=== PATIENT | female | born 1995 | race Caucasian/White ===

== ENCOUNTER → 2021-05-29 11:52 | Outpatient (CLI) | payer OTHER, SELFPAY ==
[2021-05-29 12:27] LABS: Hematocrit 37.7 % (37-47); Hemoglobin 12.4 g/dL (12.0-15.0); Mean Corp Hgb Conc 32.9 g/dL (32-36); Mean Corpuscular Volume 88.1 fL (81-99); Mean Platelet Vol. 10.1 fl (6.2-12.0); Platelet Count 360 K/mm3 (150-450); RBC Distribution Width CV 14.9 % (11.6-14.6); RBC Distribution Width SD 47.8 fl (35.1-43.9); Red Blood Count 4.28 M/mm3 (4.2-5.4); White Blood Count 15.1 K/mm3 (4.4-11.0)
[2021-05-29 12:45] LABS: ALB/GLOB Ratio 0.7 RATIO (0.9-2.4); AST(SGOT) 12 U/L (15-37); Alanine Aminotransfer ALT/SGPT 15 U/L (13-56); Albumin, Serum 2.7 g/dL (3.2-5.0); Alkaline Phosphatase 251 U/L (45-117); Anion Gap 7 (5-15); BUN 11 mg/dL (7-18); BUN/Creat Ratio 20.4 RATIO (10-20); Calcium,Total 8.8 mg/dL (8.5-10.1); Chloride 109 mmol/L (98-107); Creatinine, Serum 0.54 mg/dL (0.55-1.02); EST Glomerular Filtration Rate 145 mL/min (>60); Est Glom Filt Rate - Afr Amer 176 mL/min (>60); Globulin 3.9 g/dL (2.2-4.2); Glucose 106 mg/dL (74-106); LDH 156 U/L (84-246); Potassium 3.8 mmol/L (3.5-5.1); Protein, Total 6.6 g/dL (6.4-8.2); Sodium Level 138 mmol/L (136-145)
[2021-05-29 13:02] LABS: Protein, Urine (Random) 48.1 mg/dL (<11.9)
== END ==
PROVIDERS: Visit Provider Obstetrics & Gynecology
DX: O14.90 Unspecified pre-eclampsia, unspecified trimester (principal); Z3A.00 Weeks of gestation of pregnancy not specified; Z36.85 Encounter for antenatal screening for Streptococcus B
CPT/HCPCS: 36415; 80053; 82570; 83615; 84156; 84550; 85027; 87077; 87081; 87186

== ENCOUNTER 2021-05-30 13:50 | Inpatient (IN) | payer OTHER, SELFPAY ==
[2021-05-30] VITALS (64 sets, daily range): BP systolic 125–181; BP diastolic 63–101; PULSE 78–110; RESP 16–20; TEMP 36.3–37.8; O2SAT 82–100; BMI 49.6
[2021-05-30 10:55] LABS: Hematocrit 35.8 % (37-47); Hemoglobin 11.9 g/dL (12.0-15.0); Mean Corp Hgb Conc 33.2 g/dL (32-36); Mean Corpuscular Hgb 29.3 pg (27.0-32.0); Mean Corpuscular Volume 88.2 fL (81-99); Platelet Count 332 K/mm3 (150-450); RBC Distribution Width SD 48.6 fl (35.1-43.9); Red Blood Count 4.06 M/mm3 (4.2-5.4); White Blood Count 11.7 K/mm3 (4.4-11.0)
[2021-05-30] MEDS: Acetaminophen 500 MG Tablet 1000 MG PO (11:04)
[2021-05-30 11:13] LABS: Protein, Urine (Random) 10.4 mg/dL (<11.9); Protein:Creat Ratio 248 mg/g CRE (0-200)
[2021-05-30 11:16] LABS: AST(SGOT) 13 U/L (15-37); Alanine Aminotransfer ALT/SGPT 13 U/L (13-56); Creatinine, Serum 0.48 mg/dL (0.55-1.02); EST Glomerular Filtration Rate 164 mL/min (>60); Est Glom Filt Rate - Afr Amer 198 mL/min (>60); Estimated Creatinine Clearance 134.02 ml/min
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
[2021-05-30] MEDS: Lactated Ringers 1,000 ML 50 ML IV (14:10)
[2021-05-30] MEDS: Magnesium Sulfate 4gm/100mL 4 GM/100 ML IV.SOLN. IV (14:13)
[2021-05-30] MEDS: Magnesium Sulfate 4gm/100mL 2 GM/50 ML IV.SOLN. IV (14:33)
[2021-05-30] MEDS: miSOPROStol 25 MCG TABLET VAGINAL (14:40)
[2021-05-30 14:46] LABS: Bedside Glucose 108 mg/dL (70-110)
[2021-05-30] MEDS: Magnesium Sulfate 20 GM/500 ML BAG IV (14:50)
[2021-05-30] MEDS: metFORMIN (XR) 500 MG Tablet 1000 MG PO (14:50)
[2021-05-30 18:50] LABS: Bedside Glucose 103 mg/dL (70-110)
[2021-05-30] MEDS: Acetaminophen 500 MG Tablet PO (19:19)
[2021-05-30] MEDS: CLARIFY ORDER NOTE (19:20)
[2021-05-30] MEDS: miSOPROStol 50 MCG TABLET VAGINAL (20:30)
[2021-05-30] MEDS: Venlafaxine XR 150 MG Capsule PO (21:55)
[2021-05-30] MEDS: QUEtiapine 100 MG Tablet 200 MG PO (21:55)
[2021-05-30] MEDS: busPIRone 15 MG TABLET PO (21:57)
[2021-05-30 23:01] LABS: Bedside Glucose 112 mg/dL (70-110)
[2021-05-31] VITALS (97 sets, daily range): BP systolic 108–201; BP diastolic 55–102; PULSE 70–168; RESP 16–20; TEMP 36.5–37.9; O2SAT 80–100
[2021-05-31] MEDS: Magnesium Sulfate 20 GM/500 ML BAG IV ×3 (00:31→21:01)
[2021-05-31] MEDS: Acetaminophen/Butalbital/Caffe 1 Tablet 2 TABLET PO (01:06)
--- NOTE | 2021-05-31 02:27 | PCM.PN.OB ---
Subjective Subjective Reports severe headache, frontal. Not alleviated by Fiorecet. Denies nausea or vomiting. Denies contractions. Objective Data Objective Data Vital Signs: Vital Signs Temp Pulse Resp BP Pulse Ox 98.7 F 90 16 167/91 H 97 05/31/21 01:00 05/31/21 02:26 05/31/21 01:00 05/31/21 02:26 05/31/21 01:04 Oxygen Delivery Method Room Air Weight: 119.295 kg Body Mass Index (BMI) 49.6 Intake & Output: Intake and Output for Last 24 Hours 05/29/21 05/30/21 05/31/21 23:59 23:59 23:59 Intake Total 1450 / 1450 484.17 / 484.17 Output Total 1300 / 1300 Balance 150 / 150 484.17 / 484.17 Lab / Micro Data Result Diagrams: 05/30/21 10:35 05/31/21 07:25 Labs: Laboratory Results - last 24 hr 05/30/21 05/30/21 05/30/21 10:35 10:35 10:35 WBC 11.7 H RBC 4.06 L Hgb 11.9 L Hct 35.8 L MCV 88.2 MCH 29.3 MCHC 33.2 RDW Std Deviation 48.6 H RDW Coeff of Laila 15.0 H Plt Count 332 MPV 10.0 Creatinine 0.48 L Estim Creat Clear Calc 134.02 Est GFR (MDRD) Af Amer 198 Est GFR (MDRD) Non-Af 164 Uric Acid 5.0 AST 13 L ALT 13 U Random Total Protein 10.4 Urine Creatinine 41.90 Protein/Creatinin Ratio 248 H POC Glucose Blood Type Antibody Screen 05/30/21 05/30/21 05/30/21 14:05 14:40 18:42 WBC RBC Hgb Hct MCV MCH MCHC RDW Std Deviation RDW Coeff of Laila Plt Count MPV Creatinine Estim Creat Clear Calc Est GFR (MDRD) Af Amer Est GFR (MDRD) Non-Af Uric Acid AST ALT U Random Total Protein Urine Creatinine Protein/Creatinin Ratio POC Glucose 108 103 Blood Type O POSITIVE Antibody Screen NEGATIVE 05/30/21 22:54 WBC RBC Hgb Hct MCV MCH MCHC RDW Std Deviation RDW Coeff of Laila Plt Count MPV Creatinine Estim Creat Clear Calc Est GFR (MDRD) Af Amer Est GFR (MDRD) Non-Af Uric Acid AST ALT U Random Total Protein Urine Creatinine Protein/Creatinin Ratio POC Glucose 112 H Blood Type Antibody Screen Physical Exam Const alert, oriented x3 and no apparent distress Resp normal respiratory effort and normal air movement Cardio regular rate and regular rhythm GI Inspection: gravid Narrative: 2/50/-3, midposition and moderate NST FHR Rate Baby A Baseline: 120 Variability:: Moderate Accelerations:: 15 x 15 Decelerations:: None NST Reactive:: Yes FHR Category:: Category I Uterine Activity:: 0/10 Assessment & Plan (1) Gestational diabetes mellitus: COMMENT: well controlled PLAN: FS glucose wnl Continue to monitor per protocol (2) Severe pre-eclampsia: PLAN: Headache recurs despite APAP, Fiorecet. Reglan IV x 1 Recent BP severe range, will repeat and treat per protocol if remains elevated. SVE 2/50/-3, moderate and midposition - genao bulb placed, start pitocin
[2021-05-31] MEDS: 0.9% Normal Saline Single 100 ML IV.SOLN. INTRA-UTER (02:57)
[2021-05-31] MEDS: Lactated Ringers 500 ML 999 ML IV (03:06)
[2021-05-31 03:20] LABS: Bedside Glucose 92 mg/dL (70-110)
[2021-05-31] MEDS: Ondansetron 4 MG/2 ML Vial IV ×2 (04:06→13:22)
[2021-05-31] MEDS: fentaNYL-bupivacaine (epidural) 100 ML BAG EPIDURAL ×5 (04:20→18:19)
[2021-05-31] MEDS: Lactated Ringers 1,000 ML 200 ML IV ×4 (05:24→20:21)
[2021-05-31] MEDS: Oxytocin 30 units/NS 500 ml 30 UNITS/500 ML IV.SOLN IV (05:42)
--- NOTE | 2021-05-31 07:13 | PCM.PN.OB ---
Subjective Subjective Reports headache is coming back this morning. Feels better with epidural. Objective Data Objective Data Vital Signs: Vital Signs Temp Pulse Resp BP Pulse Ox 99.4 F H 88 16 127/73 H 98 05/31/21 06:59 05/31/21 07:05 05/31/21 06:00 05/31/21 06:59 05/31/21 07:05 Oxygen Delivery Method Room Air Weight: 119.295 kg Body Mass Index (BMI) 49.6 Intake & Output: Intake and Output for Last 24 Hours 05/29/21 05/30/21 05/31/21 23:59 23:59 23:59 Intake Total 1450 / 1450 2071.78 / 2071.78 Output Total 1300 / 1300 200 / 200 Balance 150 / 150 1871.78 / 1871.78 Lab / Micro Data Result Diagrams: 05/30/21 10:35 05/30/21 10:35 Labs: Laboratory Results - last 24 hr 05/30/21 05/30/21 05/30/21 10:35 10:35 10:35 WBC 11.7 H RBC 4.06 L Hgb 11.9 L Hct 35.8 L MCV 88.2 MCH 29.3 MCHC 33.2 RDW Std Deviation 48.6 H RDW Coeff of Laila 15.0 H Plt Count 332 MPV 10.0 Creatinine 0.48 L Estim Creat Clear Calc 134.02 Est GFR (MDRD) Af Amer 198 Est GFR (MDRD) Non-Af 164 Uric Acid 5.0 AST 13 L ALT 13 U Random Total Protein 10.4 Urine Creatinine 41.90 Protein/Creatinin Ratio 248 H POC Glucose Blood Type Antibody Screen 05/30/21 05/30/21 05/30/21 14:05 14:40 18:42 WBC RBC Hgb Hct MCV MCH MCHC RDW Std Deviation RDW Coeff of Laila Plt Count MPV Creatinine Estim Creat Clear Calc Est GFR (MDRD) Af Amer Est GFR (MDRD) Non-Af Uric Acid AST ALT U Random Total Protein Urine Creatinine Protein/Creatinin Ratio POC Glucose 108 103 Blood Type O POSITIVE Antibody Screen NEGATIVE 05/30/21 05/31/21 22:54 03:14 WBC RBC Hgb Hct MCV MCH MCHC RDW Std Deviation RDW Coeff of Laila Plt Count MPV Creatinine Estim Creat Clear Calc Est GFR (MDRD) Af Amer Est GFR (MDRD) Non-Af Uric Acid AST ALT U Random Total Protein Urine Creatinine Protein/Creatinin Ratio POC Glucose 112 H 92 Blood Type Antibody Screen Physical Exam Const alert, oriented x3 and no apparent distress GI Inspection: gravid Narrative: /-2, soft, anterior NST FHR Rate Baby A Baseline: 115 Variability:: Moderate Accelerations:: 15 x 15 Decelerations:: None NST Reactive:: Yes FHR Category:: Category I Uterine Activity:: 3-03/07 Assessment & Plan (1) Gestational diabetes mellitus: COMMENT: well controlled (2) Severe pre-eclampsia: PLAN: APAP for headache Amniotomy performed with clear fluid status reassuring
[2021-05-31 07:15] LABS: Bedside Glucose 86 mg/dL (70-110)
[2021-05-31] MEDS: Acetaminophen 500 MG Tablet PO (07:22)
[2021-05-31 07:39] LABS: Hematocrit 37.6 % (37-47); Hemoglobin 12.4 g/dL (12.0-15.0); Mean Corpuscular Hgb 29.3 pg (27.0-32.0); Mean Corpuscular Volume 88.9 fL (81-99); Mean Platelet Vol. 10.1 fl (6.2-12.0); Platelet Count 326 K/mm3 (150-450); RBC Distribution Width CV 15.1 % (11.6-14.6); Red Blood Count 4.23 M/mm3 (4.2-5.4); White Blood Count 16.6 K/mm3 (4.4-11.0)
[2021-05-31 07:53] LABS: ALB/GLOB Ratio 0.7 RATIO (0.9-2.4); AST(SGOT) 13 U/L (15-37); Alanine Aminotransfer ALT/SGPT 16 U/L (13-56); Albumin, Serum 2.8 g/dL (3.2-5.0); Alkaline Phosphatase 264 U/L (45-117); Anion Gap 10 (5-15); BUN 6 mg/dL (7-18); Chloride 101 mmol/L (98-107); Creatinine, Serum 0.54 mg/dL (0.55-1.02); EST Glomerular Filtration Rate 144 mL/min (>60); Est Glom Filt Rate - Afr Amer 174 mL/min (>60); Estimated Creatinine Clearance 119.13 ml/min; Globulin 3.8 g/dL (2.2-4.2); Glucose 95 mg/dL (74-106); Potassium 3.6 mmol/L (3.5-5.1); Protein, Total 6.6 g/dL (6.4-8.2); Sodium Level 135 mmol/L (136-145)
[2021-05-31] MEDS: Betamethasone/Betamethasone 30 MG/5 ML Vial 12 MG IM (08:06)
[2021-05-31] MEDS: metFORMIN (XR) 500 MG Tablet 1000 MG PO (08:10)
--- NOTE | 2021-05-31 09:26 | PCM.PN.OB ---
Subjective Subjective Headache improved after Tylenol. She feels some pressure with contractions, but it is manageable. Reports intense pressure with exams. Objective Data Objective Data Vital Signs: Vital Signs Temp Pulse Resp BP Pulse Ox 99.6 F H 87 16 152/77 H 97 05/31/21 09:01 05/31/21 09:06 05/31/21 09:01 05/31/21 09:06 05/31/21 09:02 Oxygen Delivery Method Room Air Weight: 119.295 kg Body Mass Index (BMI) 49.6 Intake & Output: Intake and Output for Last 24 Hours 05/29/21 05/30/21 05/31/21 23:59 23:59 23:59 Intake Total 1450 / 1450 2077.45 / 2077.45 Output Total 1300 / 1300 700 / 700 Balance 150 / 150 1377.45 / 1377.45 Lab / Micro Data Result Diagrams: 05/31/21 07:25 05/31/21 07:25 Labs: Laboratory Results - last 24 hr 05/30/21 05/30/21 05/30/21 10:35 10:35 10:35 WBC 11.7 H RBC 4.06 L Hgb 11.9 L Hct 35.8 L MCV 88.2 MCH 29.3 MCHC 33.2 RDW Std Deviation 48.6 H RDW Coeff of Laila 15.0 H Plt Count 332 MPV 10.0 Sodium Potassium Chloride Carbon Dioxide Anion Gap BUN Creatinine 0.48 L Estim Creat Clear Calc 134.02 Est GFR (MDRD) Af Amer 198 Est GFR (MDRD) Non-Af 164 BUN/Creatinine Ratio Glucose Uric Acid 5.0 Calcium Total Bilirubin AST 13 L ALT 13 Alkaline Phosphatase Total Protein Albumin Globulin Albumin/Globulin Ratio U Random Total Protein 10.4 Urine Creatinine 41.90 Protein/Creatinin Ratio 248 H POC Glucose Blood Type Antibody Screen 05/30/21 05/30/21 05/30/21 14:05 14:40 18:42 WBC RBC Hgb Hct MCV MCH MCHC RDW Std Deviation RDW Coeff of Laila Plt Count MPV Sodium Potassium Chloride Carbon Dioxide Anion Gap BUN Creatinine Estim Creat Clear Calc Est GFR (MDRD) Af Amer Est GFR (MDRD) Non-Af BUN/Creatinine Ratio Glucose Uric Acid Calcium Total Bilirubin AST ALT Alkaline Phosphatase Total Protein Albumin Globulin Albumin/Globulin Ratio U Random Total Protein Urine Creatinine Protein/Creatinin Ratio POC Glucose 108 103 Blood Type O POSITIVE Antibody Screen NEGATIVE 05/30/21 05/31/21 05/31/21 22:54 03:14 07:05 WBC RBC Hgb Hct MCV MCH MCHC RDW Std Deviation RDW Coeff of Laila Plt Count MPV Sodium Potassium Chloride Carbon Dioxide Anion Gap BUN Creatinine Estim Creat Clear Calc Est GFR (MDRD) Af Amer Est GFR (MDRD) Non-Af BUN/Creatinine Ratio Glucose Uric Acid Calcium Total Bilirubin AST ALT Alkaline Phosphatase Total Protein Albumin Globulin Albumin/Globulin Ratio U Random Total Protein Urine Creatinine Protein/Creatinin Ratio POC Glucose 112 H 92 86 Blood Type Antibody Screen 05/31/21 05/31/21 07:25 07:25 WBC 16.6 H RBC 4.23 Hgb 12.4 Hct 37.6 MCV 88.9 MCH 29.3 MCHC 33.0 RDW Std Deviation 49.0 H RDW Coeff of Laila 15.1 H Plt Count 326 MPV 10.1 Sodium 135 L Potassium 3.6 Chloride 101 Carbon Dioxide 24.0 Anion Gap 10 BUN 6 L Creatinine 0.54 L Estim Creat Clear Calc 119.13 Est GFR (MDRD) Af Amer 174 Est GFR (MDRD) Non-Af 144 BUN/Creatinine Ratio 11.0 Glucose 95 Uric Acid Calcium 8.0 L Total Bilirubin 0.30 AST 13 L ALT 16 Alkaline Phosphatase 264 H Total Protein 6.6 Albumin 2.8 L Globulin 3.8 Albumin/Globulin Ratio 0.7 L U Random Total Protein Urine Creatinine Protein/Creatinin Ratio POC Glucose Blood Type Antibody Screen Physical Exam Const alert, oriented x3 and no apparent distress Resp normal respiratory effort, normal air movement and clear to auscultation bilaterally Cardio regular rate, regular rhythm, S1 normal heart sound and S2 normal heart sound Narrative: 4.5/70/-3 Neuro oriented x3 Neuro Narrative: no clonus, +2 b/l LE DTRs, brisk, no clonus NST FHR Rate Baby A Baseline: 115 Variability:: Moderate Accelerations:: 15 x 15 Decelerations:: None NST Reactive:: Yes FHR Category:: Category I Uterine Activity:: 02/04 Assessment & Plan (1) Gestational diabetes mellitus: COMMENT: well controlled (2) Severe pre-eclampsia: PLAN: continue magnesium iv as tolerated, no evidence of toxicity AM labs reviewed and remains wnl IUPC and ISE placed continue pitocin
[2021-05-31] MEDS: busPIRone 15 MG TABLET PO (10:16)
[2021-05-31 11:20] LABS: Bedside Glucose 105 mg/dL (70-110)
[2021-05-31 15:26] LABS: Bedside Glucose 119 mg/dL (70-110)
[2021-05-31 19:31] LABS: Bedside Glucose 100 mg/dL (70-110)
--- NOTE | 2021-05-31 20:38 | PCM.PN.BLA ---
Progress Note Author: Yomaira Brooks MD Subjective Reports severe pain with contractions into her back and buttocks. Objective Data Vital Signs: Vital Signs Temp Pulse Resp BP Pulse Ox 97.8 F 89 18 135/72 H 98 05/31/21 19:58 05/31/21 20:15 05/31/21 19:58 05/31/21 20:15 05/31/21 19:58 Oxygen Delivery Method Room Air Weight: 119.295 kg Body Mass Index (BMI) 49.6 Intake & Output:Intake and Output for Last 24 Hours 05/29/21 05/30/21 05/31/21 23:59 23:59 23:59 Intake Total 1450 / 1450 5899.42 / 5899.42 Output Total 1300 / 1300 2700 / 2700 Balance 150 / 150 3199.42 / 3199.42 Lab / Micro Data Result Diagrams: 05/31/21 07:25 document embedded image 05/31/21 07:25 document embedded image Labs:Laboratory Results - last 24 hr 05/30/21 05/31/21 05/31/21 22:54 03:14 07:05 WBC RBC Hgb Hct MCV MCH MCHC RDW Std Deviation RDW Coeff of Laila Plt Count MPV Sodium Potassium Chloride Carbon Dioxide Anion Gap BUN Creatinine Estim Creat Clear Calc Est GFR (MDRD) Af Amer Est GFR (MDRD) Non-Af BUN/Creatinine Ratio Glucose Calcium Total Bilirubin AST ALT Alkaline Phosphatase Total Protein Albumin Globulin Albumin/Globulin Ratio POC Glucose 112 H 92 86 05/31/21 05/31/21 05/31/21 07:25 07:25 11:08 WBC 16.6 H RBC 4.23 Hgb 12.4 Hct 37.6 MCV 88.9 MCH 29.3 MCHC 33.0 RDW Std Deviation 49.0 H RDW Coeff of Laila 15.1 H Plt Count 326 MPV 10.1 Sodium 135 L Potassium 3.6 Chloride 101 Carbon Dioxide 24.0 Anion Gap 10 BUN 6 L Creatinine 0.54 L Estim Creat Clear Calc 119.13 Est GFR (MDRD) Af Amer 174 Est GFR (MDRD) Non-Af 144 BUN/Creatinine Ratio 11.0 Glucose 95 Calcium 8.0 L Total Bilirubin 0.30 AST 13 L ALT 16 Alkaline Phosphatase 264 H Total Protein 6.6 Albumin 2.8 L Globulin 3.8 Albumin/Globulin Ratio 0.7 L POC Glucose 105 05/31/21 05/31/21 15:13 19:13 WBC RBC Hgb Hct MCV MCH MCHC RDW Std Deviation RDW Coeff of Laila Plt Count MPV Sodium Potassium Chloride Carbon Dioxide Anion Gap BUN Creatinine Estim Creat Clear Calc Est GFR (MDRD) Af Amer Est GFR (MDRD) Non-Af BUN/Creatinine Ratio Glucose Calcium Total Bilirubin AST ALT Alkaline Phosphatase Total Protein Albumin Globulin Albumin/Globulin Ratio POC Glucose 119 H 100 Physical Exam Narrative breathing deeply through contractions Const alert, oriented x3 and no apparent distress GI Inspection: gravid Narrative: /, caput present and no longer able to well assess suture line, Bedside US performed confirming cephalic and OP NST FHR Rate Baby A Baseline: 125 Accelerations:: 15 x 15 Decelerations:: None NST Reactive:: Yes FHR Category:: Category I Uterine Activity:: 3/10 A/P: 26yo G1 @ 36 1/7 weeks gestation -36 weeks gestation: Continue pitocin as tolerated, anesthesiology contacted for redosing of epidural. -Gestational Diabetes: Last FS 100mg/dL, continue q4h until active labor -Preeclampsia with severe features: Continue magnesium as tolerated by mother and fetus, no si/sx of worsening at this time. -
--- NOTE | 2021-05-31 22:21 | PCM.PN.BLA ---
Progress Note LABOR PROGRESS NOTE c/o excruciating pain and back spasm with pressure. She requests a section as she can't last much longer. AVSS, 133/89, P 95, R 18, T 99.9, O2 sat 98 GEN - breathing deeply and writhing with contractions FHR 130, moderate variability, + accelerations, no decelerations TOCO 4/10 min SVE 6/80/0 A/P: 26yo G1 @ 36 2/7 wga with 1. Preeclampsia with severe features 2. Gestational diabetes mellitus, Cat I FHR Reviewed with patient section indications, does not meet obstetric criteria at this time. FHR reassuring and no si/sx worsening preeclampsia. Repeat SVE performed and given patient remote from delivery requests section. Discussed with patient r/b versus vaginal delivery. Reviewed risk for pain, bleeding including but not limited to hemorrhage, infection, VTE, injury to surrounding organs, risk for placenta accreta with associated risk for hysterectomy and hemorrhage in future , scarring, increased risk for respiratory difficulties. High risk for GA given prior back surgeries and suboptimal epidural - reviewed increased risk for hemorrhage related to GA, as well as respiratory depression. Also offered patient nitrous oxide with continued labor. Following discussion, pt elects to proceed with section. Pitocin discontinued.
[2021-05-31 22:31] LABS: Bedside Glucose 102 mg/dL (70-110)
[2021-05-31] MEDS: Sodium Citrate/Citric Acid 30 ML UDC PO (22:31)
[2021-06-01] VITALS (56 sets, daily range): BP systolic 86–171; BP diastolic 43–97; PULSE 76–114; RESP 16–32; TEMP 36.2–37.3; O2SAT 94–100
[2021-06-01] MEDS: Oxytocin 30 units/NS 500 ml 30 UNITS/500 ML IV.SOLN 167 UNITS IV (00:20)
--- NOTE | 2021-06-01 00:35 | EX.PCM.OBRPT ---
Maternal Data Information MESFIN Calculator Estimated Delivery Date Method Current WG Current Estimate 06/26/21 Ultrasound #1 36w 3d Other Estimates 06/26/21 Manual 36w 3d Details Operative Information Date of Procedure: 06/01/21 Pre-Operative Diagnosis: 1. 36-2/7 weeks gestation 2. Preeclampsia with severe features 3. Gestational [id number] 4. Maternal section request Post-Operative Diagnosis: 1. 36-2/7 weeks gestation 2. Preeclampsia with severe features 3. Gestational [id number] 4. Maternal section request Indications Narrative: 26-year-old 1 para 0 who presented at 36-1/7 weeks gestational age with preeclampsia with severe features. She was induced and started on IV magnesium had progressed to 6 cm dilation with category 1 heart rate tracing. She had a prior history of back surgery including laminectomy and her epidural analgesia was an adequate despite multiple redosing. The patient requested section due to significant pain in labor. I reviewed with the patient related risks, benefits, indications and alternatives to manage her pain intrapartum. Patient declined further trial of labor and opted to proceed with section. Classification: JASON Procedure Type: low transverse training and development specialist #1: Erinn Fink Type of Anesthesia: Spinal Anesthesiologist: Daniel Mensah Antibiotic Given: Ancef 3 grams IV x1 and Zithromax 500 mg/5 mL X1 Drain: Talley to straight drain Estimated Blood Loss: 900 ml Findings Description of Procedure: The patient was taken to the operating room and spinal analgesia was administered. She is placed in a dorsal supine position with left lateral tilt. The perineum and abdomen were prepped and draped in sterile fashion. And the spinal was found to be adequate. A Pfannenstiel incision was made using a scalpel and brought down to incise the subcutaneous tissue and rectus fascia at the midline. Subcutaneous tissue was bluntly dissected off the fascia laterally. The fascial incision was dissected laterally and cephalad using curved Watson scissors. The superior leaflet of the rectus fascia was grasped using Luis Alfredo clamps and bluntly dissected and sharply dissected from the underlying rectus muscle. In a similar fashion the inferior rectus fascia was dissected from the underlying muscle. The rectus muscles were bluntly at the midline. The peritoneum was identified and entered [sharply]. An Juan O retractor was placed intra-abdominally. The bladder blade was placed into the abdomen and the vesicouterine peritoneal fold identified. The fold was incised and a bladder flap created. Bladder blade was then repositioned to the abdomen. A low transverse hysterotomy was made using the [Metzenbaum scissors] to level of the membranes. The hysterotomy was extended bluntly cephalad and caudad. The membranes were then ruptured revealing clear fluid. The head was elevated and brought to the level of the hysterotomy and the delivered revealing a [male] . The cord was doubly clamped and cut after 30 seconds. The infant was passed to awaiting [nursery personnel]. The placenta was [expressed] from the uterus and appeared intact on inspection. The uterus was cleared of debris. The hysterotomy was then repaired using 0 Vicryl running lock suture. A second imbricating layer was also placed for additional hemostasis. [id number]-vw-[id number] suture was placed at the midline for hemostasis. The bladder blade and Juan retractor were removed. The anterior cul-de-sac was cleared of debris. The peritoneum and rectus muscles were reapproximated using 2-0 Vicryl running suture. The rectus fascia was closed using 0 strata fix running suture. The subcutaneous tissue was sponge irrigated and small capillary bleeding controlled using the Bovie device. The subcutaneous tissue was reapproximated using 2-0 Vicryl. The skin was closed using 4-0 Monocryl subcuticularly by the GROUN[employer] RESTORATION SPECIALIST under my supervision. A Mepilex silver occlusive dressing was placed over the incision. The fundus was firm. The patient was then transferred to the recovery room without complication. Sponge, instrument, and needle counts were correct ?2. Cord gases pending. Infant weight 6 pounds 6 ounces. Presentation: Positive for Vertex Amniotic Membrane Rupture Type: Spontaneous Amniotic Fluid Description: Clear Placental Delivery Description: Expressed Placenta Disposition: Sent to Pathology Specimen(s) Sent to Pathology: Placenta Cord Vessel Description: 3 Vessels Cord Entanglement: Around neck x 2, loose Nuchal Cord Compression: Without compression Cord Gases: ABG and VBG A Gender: Male (1 minute): 7 (5 minute): 9 Delayed Cord Clamping: Yes Complications Risks of Surgery Discussed w/Patient: Bleeding, Anesthesia Risks, Infection, Need for Future C-Sections and Injury to surrounding structure(s) including bowel and bladder
[2021-06-01] MEDS: Ketorolac 30 MG/ML Syringe IV ×4 (00:40→18:11)
[2021-06-01 01:00] LABS: Bedside Glucose 118 mg/dL (70-110)
[2021-06-01] MEDS: Acetaminophen 500 MG Tablet 1000 MG PO ×4 (01:53→20:15)
[2021-06-01] MEDS: QUEtiapine 100 MG Tablet 200 MG PO ×2 (02:06→22:16)
[2021-06-01] MEDS: Venlafaxine XR 150 MG Capsule PO ×2 (02:07→22:07)
[2021-06-01] MEDS: busPIRone 15 MG TABLET PO ×3 (02:09→22:16)
[2021-06-01] MEDS: Lactated Ringers 1,000 ML 50 ML IV ×2 (03:35→14:11)
[2021-06-01] MEDS: HYDROmorphone 1 MG/ML Syringe IV ×3 (04:04→23:08)
[2021-06-01] MEDS: 0.9% Saline Lock 10 ML Syringe IV (04:06)
[2021-06-01] MEDS: Heparin Injection (Vial) 5,000 UNIT/ML VIAL 5000 UNIT SC ×3 (06:17→22:17)
[2021-06-01 06:25] LABS: Bedside Glucose 122 mg/dL (70-110)
[2021-06-01] MEDS: Magnesium Sulfate 20 GM/500 ML BAG IV ×2 (06:34→16:46)
[2021-06-01] MEDS: Senna/Docusate Sodium 1 Tablet PO (08:12)
[2021-06-01] MEDS: Cefazolin 1 GM/50 ML BAG IV ×2 (08:12→15:58)
--- NOTE | 2021-06-01 08:20 | PCM.PN.BLA ---
Progress Note Subjective: Patient reports she is sore including back pain with some periods additional pain. She stood up at the bedside and denies lightheadedness. She did feel she felt weak. Denies headache, vision changes, shortness of breath, chest pain, nausea, vomiting. She is breast-feeding and hand expressing. Objective: Blood pressure 86/47 (80s-140s/50s-90s postop), pulse 92, R 18, O2 sat 99% on RA General alert and oriented x3 with no acute distress HEENT atraumatic, normocephalic Cardiovascular regular rate and rhythm no murmurs rubs or gallops Pulmonary lungs clear to auscultation bilaterally Abdomen soft nontender nondistended Fundus: Firm, nontender, incisional dressing clean dry and intact. : Lochia scant. Extremities: No calf tenderness, trace lower extremity edema Assessment: 26-year-old G1 now P1 status post primary low transverse section with preeclampsia and severe features on magnesium. Plan section delivered: Routine postop care, Rh+, rubella immune, HIV negative, hep B surface antigen negative; breast-feeding Low blood pressure: fluid bolus, CBC this a.m. Severe preeclampsia: Continue magnesium infusion, no signs and symptoms of worsening Gestational diabetes: Blood sugar this morning 122 mg/dL, will repeat fasting blood sugar tomorrow morning History of depression and anxiety: Home medications continued
[2021-06-01 09:33] LABS: Absolute Lymphocyte Count 1.79 X10^3/uL (0.83-4.51); Absolute Neutrophil Count 18.2 X10^3/uL (2.0-7.7); Basophil# 0.04 X10^3/uL; Basophil% 0.2 % (0-1); Hematocrit 27.1 % (37-47); Hemoglobin 8.9 g/dL (12.0-15.0); Lymphocyte # 1.79 X10^3/ul (0.83-4.51); Lymphocyte % 8.4 % (19-41); Mean Corp Hgb Conc 32.8 g/dL (32-36); Mean Corpuscular Hgb 29.4 pg (27.0-32.0); Mean Corpuscular Volume 89.4 fL (81-99); Mean Platelet Vol. 9.9 fl (6.2-12.0); Monocyte# 1.06 X10^3/uL; NRBC Flagged by Analyzer 0 % (0-5); Neutrophil # 18.23 X10^3/uL (2.7-7.7); Neutrophil % 85.4 % (47-70); Platelet Count 286 K/mm3 (150-450); RBC Distribution Width CV 15.6 % (11.6-14.6); RBC Distribution Width SD 50.3 fl (35.1-43.9); Red Blood Count 3.03 M/mm3 (4.2-5.4); White Blood Count 21.3 K/mm3 (4.4-11.0)
[2021-06-01] MEDS: Lactated Ringers 500 ML 999 ML IV (09:34)
[2021-06-01] MEDS: NIFEdipine 30 MG Tablet PO (22:07)
[2021-06-02] VITALS (11 sets, daily range): BP systolic 123–168; BP diastolic 64–102; PULSE 80–115; RESP 18; TEMP 36.3–37.3; O2SAT 95–98
[2021-06-02] MEDS: Ibuprofen 600 MG Tablet PO ×4 (00:29→19:16)
[2021-06-02] MEDS: Acetaminophen 500 MG Tablet 1000 MG PO ×4 (02:11→20:01)
[2021-06-02] MEDS: oxyCODONE 5 MG Tablet PO ×2 (02:18→17:31)
[2021-06-02 05:51] LABS: Hematocrit 25.6 % (37-47); Hemoglobin 8.3 g/dL (12.0-15.0); Mean Corp Hgb Conc 32.4 g/dL (32-36); Mean Corpuscular Hgb 29.5 pg (27.0-32.0); Mean Corpuscular Volume 91.1 fL (81-99); Platelet Count 275 K/mm3 (150-450); RBC Distribution Width CV 15.7 % (11.6-14.6); RBC Distribution Width SD 51.8 fl (35.1-43.9); Red Blood Count 2.81 M/mm3 (4.2-5.4); White Blood Count 15.7 K/mm3 (4.4-11.0)
[2021-06-02 05:51] LABS: Bedside Glucose 103 mg/dL (70-110)
[2021-06-02] MEDS: Heparin Injection (Vial) 5,000 UNIT/ML VIAL 5000 UNIT SC ×3 (05:54→23:40)
--- NOTE | 2021-06-02 08:04 | PN.OBGYN_ITS ---
Subjective Subjective Patient with improved symptoms but with headache this morning upon evaluation. Patient otherwise asymptomatic. Denies visual changes, chest pain, shortness of breath, nausea vomiting, right upper quadrant pain. Objective Data Objective Data Vital Signs: Vital Signs Temp Pulse Resp BP Pulse Ox 98.3 F 80 18 123/64 H 98 06/02/21 02:12 06/02/21 07:46 06/02/21 02:12 06/02/21 07:46 06/02/21 02:14 Oxygen Delivery Method Room Air Weight: 263 lb Body Mass Index (BMI) 49.6 Intake & Output: Intake and Output for Last 24 Hours 05/31/21 06/01/21 06/02/21 23:59 23:59 23:59 Intake Total 7859.95 / 7859.95 4691.67 / 4691.67 Output Total 3000 / 3000 2930 / 2930 550 / 550 Balance 4859.95 / 4859.95 1761.67 / 1761.67 -550 / -550 Lab / Micro Data Result Diagrams: 06/02/21 05:40 05/31/21 07:25 Labs: Laboratory Results - last 24 hr 06/01/21 06/02/21 06/02/21 09:25 05:38 05:40 WBC 21.3 H 15.7 H RBC 3.03 L 2.81 L Hgb 8.9 L 8.3 L Hct 27.1 L 25.6 L MCV 89.4 91.1 MCH 29.4 29.5 MCHC 32.8 32.4 RDW Std Deviation 50.3 H 51.8 H RDW Coeff of Laila 15.6 H 15.7 H Plt Count 286 275 MPV 9.9 10.0 Immature Gran % (Auto) 1.000 H Neut % (Auto) 85.4 H Lymph % (Auto) 8.4 L [place] % (Auto) 5.0 Eos % (Auto) 0.0 Baso % (Auto) 0.2 Absolute Neuts (auto) 18.2 H Absolute Lymphs (auto) 1.79 Nucleated RBC % 0 POC Glucose 103 Physical Exam Const alert, oriented x3 and no apparent distress HEENT normocephalic Head and Scalp: atraumatic Neck full ROM Resp normal respiratory effort, no retractions and no use of accessory muscles GI normal to inspection, nondistended, normoactive bowel sounds GI Narrative: Bandage clean dry and intact Extremity normal to inspection, full ROM and no clubbing, cyanosis or edema Skin no rashes or lesions noted Psych mental status grossly normal, affect normal, speech normal and activity/motor behavior normal Assessment & Plan (1) : PLAN: Postoperative day 1 status post elective primary section. Breast-feeding. Pain well controlled. Severe preeclampsia based on visual changes status post 24 hours magnesium. Started on Procardia 30 mg daily blood pressures within normal limits. Headache this morning we will give Tylenol and reevaluate.
[2021-06-02] MEDS: Senna/Docusate Sodium 1 Tablet PO (10:41)
[2021-06-02] MEDS: NIFEdipine 30 MG Tablet PO (10:41)
[2021-06-02] MEDS: busPIRone 15 MG TABLET PO ×2 (12:00→23:40)
[2021-06-02] MEDS: QUEtiapine 100 MG Tablet 200 MG PO (23:39)
[2021-06-02] MEDS: Venlafaxine XR 150 MG Capsule PO (23:40)
[2021-06-03] VITALS (7 sets, daily range): BP systolic 129–166; BP diastolic 65–101; PULSE 94–106; RESP 16–20; TEMP 36.7–36.9; O2SAT 96
[2021-06-03] MEDS: Ibuprofen 600 MG Tablet PO ×4 (00:43→18:25)
[2021-06-03] MEDS: Acetaminophen 500 MG Tablet 1000 MG PO ×3 (02:13→15:19)
[2021-06-03] MEDS: oxyCODONE 5 MG Tablet PO ×2 (04:58→18:25)
[2021-06-03] MEDS: Heparin Injection (Vial) 5,000 UNIT/ML VIAL 5000 UNIT SC ×2 (06:26→15:20)
[2021-06-03] MEDS: 0.9% Saline Lock 10 ML Syringe IV (06:29)
--- NOTE | 2021-06-03 06:49 | PCM.PN.BLA ---
Progress Note Visited patient room at approximately 0600h and patient not present. Will revisit later today.
--- NOTE | 2021-06-03 08:45 | NURSING ---
BP of 166/101 taken with cuff too small. BP to be retaken with larger cuff
--- NOTE | 2021-06-03 09:04 | PCM.PN.OB ---
Subjective Subjective Pain controlled, out of bed, ambulating without difficulty. Voiding without difficulty. Passing flatus. Tolerates PO without nausea or vomiting. Denies heavy lochia. She is and pumping. Objective Data Objective Data Vital Signs: Vital Signs Temp Pulse Resp BP Pulse Ox 98.4 F 94 20 H 130/68 H 96 06/03/21 04:50 06/03/21 04:50 06/03/21 04:50 06/03/21 04:50 06/03/21 04:50 Oxygen Delivery Method Room Air Weight: 119.295 kg Body Mass Index (BMI) 49.6 Intake & Output: Intake and Output for Last 24 Hours 06/01/21 06/02/21 06/03/21 23:59 23:59 23:59 Intake Total 4691.67 / 4691.67 Output Total 2930 / 2930 1050 / 1050 Balance 1761.67 / 1761.67 -1050 / -1050 Lab / Micro Data Result Diagrams: 06/02/21 05:40 05/31/21 07:25 Physical Exam Const alert, oriented x3 and no apparent distress Resp normal respiratory effort, normal air movement and clear to auscultation bilaterally Cardio regular rate, regular rhythm, S1 normal heart sound and S2 normal heart sound GI normal to inspection, nondistended, normoactive bowel sounds, soft to palpation, non-tender and non-distended GI Narrative: incisional dressing c/d/i Manual OB Exam: other lochia scant Uterus Palpation: uterus fundus firm Extremity no calf tenderness Extremity Narrative: trace b/l pedal edema Assessment & Plan (1) Severe pre-eclampsia: QUALIFIERS: Trimester: third trimester Qualified Code(s): O14.13 - Severe pre-eclampsia, third trimester COMMENT: BPs overall well controlled with Nifedipine. Recent BP elevated however, pt was ambulatory and sat down immediately prior. Will review repeat. (2) Delivery by section: PLAN: Doing well Routine post-op care Requests d/c home today. Will monitor BPs further to determine discharge plan. Pt will need to monitor home BPs and follow up in 1-2 weeks.
--- NOTE | 2021-06-03 09:12 | PCM.DC ---
Discharge Instructions Diet Discharge Diet: No restrictions Activity Discharge Activity: Return to Normal Activity and May Shower May resume sexual activity in: 4-6 weeks Lifting Restrictions: 10 lb Dressing / Incision Call your doctor if you observe: Fever of 101 or Higher, Using more than 1 pad per hour, Shortness of breath, Chest pain, Calf discomfort, Uncontrolled pain and - (Persistent or severe headache) Suture Line Care: Avoid Pulling/Pushing Remove Dressing in: 4 days Cleanse incision/area with: Soap & Water Follow Up Care Please Follow Up With: Donald Weber MD When: 06/15/21 at 3:15pm with Dr. Weber Test Results: Test results from this visit will be discussed in further detail at your follow-up appointment, if applicable. Discharge Plan Admission Admit Date/Time: 05/30/21 13:50 Primary Reason for Your Visit: section, Preeclampsia Attending Provider: Yomaira Duke Primary Care Provider: Care Physician,No Primary Instructions Patient Instructions: Understanding Preeclampsia, Section (), Understanding Depression Discharge Orders/Prescriptions Prescriptions: New ibuprofen 600 mg Tablet 600 mg PO Q6H PRN (Reason: Pain) Qty: 30 RF: 0 oxycodone 5 mg Tablet 5 mg PO Q6H PRN PRN (Reason: Pain, Severe) 7 Days Qty: 5 RF: 0 nifedipine 60 mg tablet extended release 60 mg PO DAILY Qty: 30 RF: 3 Continued quetiapine [Seroquel] 25 mg Tablet 200 mg PO DAILY RF: 0 buspirone 5 mg Tablet 15 mg PO BID RF: 0 jbwvvuxr-vkv-Mh-FA 1 mg Tablet 1 tab PO DAILY RF: 0 venlafaxine 150 mg capsule,extended release 24hr 150 mg PO DAILY RF: 0 Discontinued metformin [Glucophage] 500 mg Tablet 500 mg PO BID RF: 0 diphenhydramine-acetaminophen [Tylenol PM Extra Strength] 25-500 mg Tablet 1 tab PO Q4H PRN (Reason: Sleep) RF: 0 Baby Aspirin tablet 81 mg OTHER DAILY RF: 0 Referrals / Follow Up: Care Physician,No Primary [Primary Care Provider] - Disposition Disposition (needs filled in before D/C Order can be placed): Home, Self Care
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
[2021-06-03] MEDS: Senna/Docusate Sodium 1 Tablet PO (10:26)
[2021-06-03] MEDS: busPIRone 15 MG TABLET PO (10:26)
[2021-06-03] MEDS: NIFEdipine 30 MG Tablet PO ×2 (10:27→16:02)
--- NOTE | 2021-06-05 05:59 | DS.PCM_ITS ---
Providers Date of Admission: 05/30/21 Primary Care Physician: Radha Primary Care Phys Reason For Visit: PRIMARY CSECTION Diagnosis Discharge Diagnosis (1) Severe pre-eclampsia: Status: Acute Code(s): O14.10 - Severe pre-eclampsia, unspecified trimester Qualifiers: Trimester: third trimester Qualified Code(s): O14.13 - Severe pre- eclampsia, third trimester (2) Delivery by section: Status: Acute Medications at Discharge Home Medications buspirone 15 mg PO BID 05/30/21 qeemjler-[id number]-Rd-FA 1 tab PO DAILY 05/30/21 quetiapine [Seroquel] 200 mg PO DAILY 05/30/21 venlafaxine 150 mg PO DAILY 05/30/21 ferrous sulfate 325 mg PO BID #60 tab 06/03/21 ibuprofen 600 mg PO Q6H PRN #30 tab 06/03/21 nifedipine 60 mg PO DAILY #30 tab 06/03/21 oxycodone 5 mg PO Q6H PRN PRN 7 Days #5 tab 06/03/21 Hospital Course Operations section Summary of Care Provided Hospital Course: 26yo G1 admitted at 36 1/7 weeks gestation with c/o headache, vision change and elevated blood pressure for preeclampsia with severe features. She received IV Magnesium and with induction progressed to 6cm dilation. She reported her epidural analgesia inadequate and requested section at this time. She underwent an uncomplicated section and magnesium was discontinued. She was started on Nifedipine XL for hypertensive control. Her postoperative course was otherwise unremarkable and she was discharged to home on postoperative day #3. Weight / BMI Weight Weight: 119.295 kg Body Mass Index (BMI) 49.6 ABG / Lab / Microbiology Data Result Diagrams: 06/02/21 05:40 05/31/21 07:25 D/C Instructions Discharge Diet: No restrictions May resume sexual activity in: 4-6 weeks Call your doctor if you observe: Fever of 101 or Higher, Using more than 1 pad per hour, Shortness of breath, Chest pain, Calf discomfort, Uncontrolled pain and - (Persistent or severe headache) Suture Line Care: Avoid Pulling/Pushing Cleanse incision/area with: Soap & Water Please Follow Up With: Donald Weber MD When: 06/15/21 at 3:15pm with Dr. Weber Meaningful Use Info Meaningful Use Diagnoses (Choose all that apply): None applicable Discharge Plan Admission Admit Date/Time: 05/30/21 13:50 Primary Reason for Your Visit: section, Preeclampsia Attending Provider: Yomaira Duke Primary Care Provider: Care Physician,Radha Primary Instructions Forms: Information Patient Instructions: Understanding Preeclampsia, Section (), Understanding Depression Discharge Orders/Prescriptions Prescriptions: New ibuprofen 600 mg Tablet 600 mg PO Q6H PRN (Reason: Pain) Qty: 30 RF: 0 oxycodone 5 mg Tablet 5 mg PO Q6H PRN PRN (Reason: Pain, Severe) 7 Days Qty: 5 RF: 0 nifedipine 60 mg tablet extended release 60 mg PO DAILY Qty: 30 RF: 3 ferrous sulfate 325 mg (65 mg iron) tablet 325 mg PO BID Qty: 60 RF: 0 Continued quetiapine [Seroquel] 25 mg Tablet 200 mg PO DAILY RF: 0 buspirone 5 mg Tablet 15 mg PO BID RF: 0 rqicywou-dag-Rp-FA 1 mg Tablet 1 tab PO DAILY RF: 0 venlafaxine 150 mg capsule,extended release 24hr 150 mg PO DAILY RF: 0 Discontinued metformin [Glucophage] 500 mg Tablet 500 mg PO BID RF: 0 diphenhydramine-acetaminophen [Tylenol PM Extra Strength] 25-500 mg Tablet 1 tab PO Q4H PRN (Reason: Sleep) RF: 0 Baby Aspirin tablet 81 mg OTHER DAILY RF: 0 Referrals / Follow Up: Care Physician,No Primary [Primary Care Provider] - Disposition Disposition (needs filled in before D/C Order can be placed): Home, Self Care
== END 2021-06-03 18:35 | disposition home or self-care (01) | DRG 788 ==
LOC: WPOUT 13:55 → WP 13:55
PROVIDERS: Admitting Provider Obstetrics & Gynecology; Referring Provider Obstetrics & Gynecology; Visit Provider Obstetrics & Gynecology
DX: O14.14 Severe pre-eclampsia complicating childbirth (principal); Z37.0 Single live birth; Z3A.36 36 weeks gestation of pregnancy; O99.344 Other mental disorders complicating childbirth; F41.9 Anxiety disorder, unspecified; F31.9 Bipolar disorder, unspecified; Z79.899 Other long term (current) drug therapy; Z79.82 Long term (current) use of aspirin; Z79.84 Long term (current) use of oral hypoglycemic drugs; O24.425 Gestational diabetes mellitus in childbirth, controlled by oral hypoglycemic drugs; O69.81X0 Labor and delivery complicated by cord around neck, without compression, not applicable or unspecified
CPT/HCPCS: 36415; 59025; 59050; 76815; 80053; 82565; 82570; 82962; 84156; 84450; 84460; 84550; 85025; 85027; 86850; 86900; 86901; 99218; J7120; A4216; G0378; J0702; J2405

== ENCOUNTER → 2022-06-07 | Outpatient (CLI) | payer BC, SELFPAY ==
[2022-06-07 10:52] LABS: Hematocrit 41.8 % (37-47); Hemoglobin 13.4 g/dL (12.0-15.0); Mean Corp Hgb Conc 32.1 g/dL (32-36); Mean Corpuscular Hgb 28.4 pg (27.0-32.0); Mean Corpuscular Volume 88.6 fL (81-99); Mean Platelet Vol. 8.9 fl (6.2-12.0); Platelet Count 512 K/mm3 (150-450); RBC Distribution Width SD 45.4 fl (35.1-43.9); Red Blood Count 4.72 M/mm3 (4.2-5.4); White Blood Count 10.9 K/mm3 (4.4-11.0)
[2022-06-07 11:06] LABS: AST(SGOT) 12 U/L (15-37); Alanine Aminotransfer ALT/SGPT 21 U/L (13-56); Anion Gap 9 (5-15); BUN 16 mg/dL (7-18); BUN/Creat Ratio 23.4 RATIO (10-20); Calcium,Total 9.1 mg/dL (8.5-10.1); Chloride 106 mmol/L (98-107); Cholesterol 189 mg/dL (200); Creatinine, Serum 0.68 mg/dL (0.55-1.02); EST Glomerular Filtration Rate 110 mL/min (>60); Est Glom Filt Rate - Afr Amer 133 mL/min (>60); Glucose 107 mg/dL (74-106); High Density Lipoprotein 51 mg/dL; Potassium 4.2 mmol/L (3.5-5.1); Sodium Level 139 mmol/L (136-145); Triglycerides 112 mg/dL; Very Low Density Lipoprotein 22 mg/dL (5-40)
[2022-06-07 11:07] LABS: Hemoglobin A1c 5.5 % (3.8-5.6)
[2022-06-07 11:08] LABS: Vitamin D,25 Hydroxy 22.9 ng/mL
== END | disposition home or self-care (01) ==
DX: Z79.899 Other long term (current) drug therapy (principal)
CPT/HCPCS: 36415; 80048; 80061; 82306; 83036; 84450; 84460; 85027

== ENCOUNTER → 2022-11-09 | Outpatient (CLI) | payer BC, SELFPAY ==
[2022-11-09 16:58] LABS: Absolute Lymphocyte Count 2.12 X10^3/uL (0.83-4.51); Absolute Neutrophil Count 6.2 X10^3/uL (2.0-7.7); Basophil# 0.05 X10^3/uL; Basophil% 0.5 % (0-1); Eosinophil# 0.16 X10^3/uL; Eosinophils% 1.8 % (0-5); Hematocrit 41.6 % (37-47); Hemoglobin 13.3 g/dL (12.0-15.0); Lymphocyte # 2.12 X10^3/ul (0.83-4.51); Lymphocyte % 23.2 % (19-41); Mean Corpuscular Hgb 28.7 pg (27.0-32.0); Mean Corpuscular Volume 89.8 fL (81-99); Mean Platelet Vol. 9.9 fl (6.2-12.0); Monocyte# 0.59 X10^3/uL; Monocyte% 6.5 % (0-10); NRBC Flagged by Analyzer 0 % (0-5); Neutrophil # 6.16 X10^3/uL (2.7-7.7); Neutrophil % 67.5 % (47-70); Platelet Count 441 K/mm3 (150-450); RBC Distribution Width CV 14.1 % (11.6-14.6); RBC Distribution Width SD 46.6 fl (35.1-43.9); Red Blood Count 4.63 M/mm3 (4.2-5.4); White Blood Count 9.1 K/mm3 (4.4-11.0)
[2022-11-09 17:06] LABS: ALB/GLOB Ratio 0.8 RATIO (0.9-2.4); AST(SGOT) 15 U/L (15-37); Alanine Aminotransfer ALT/SGPT 23 U/L (13-56); Albumin, Serum 3.4 g/dL (3.2-5.0); Alkaline Phosphatase 85 U/L (45-117); Anion Gap 7 (5-15); BUN 9 mg/dL (7-18); BUN/Creat Ratio 13.5 RATIO (10-20); Chloride 106 mmol/L (98-107); Creatinine, Serum 0.66 mg/dL (0.55-1.02); EST Glomerular Filtration Rate 113 mL/min (>60); Est Glom Filt Rate - Afr Amer 136 mL/min (>60); Globulin 4.5 g/dL (2.2-4.2); Glucose 123 mg/dL (74-106); LDH 142 U/L (84-246); Potassium 3.7 mmol/L (3.5-5.1); Protein, Total 7.9 g/dL (6.4-8.2); Sodium Level 137 mmol/L (136-145)
[2022-11-09 17:31] LABS: Protein, Urine (Random) 12.7 mg/dL (<11.9); Protein:Creat Ratio 111 mg/g CRE (0-200)
[2022-11-09 17:45] LABS: HIV - WCH Non-Reactive (Nonreactive); Hepatitis B Surface Antigen Non-Reactive (Nonreactive); Hepatitis C Antibody Non-Reactive (Nonreactive); Rubella IgG Reactive (Nonreactive); Syphilis Antibodies Non-reactive
[2022-11-11 10:37] LABS: V-Zoster IgG (Immunity) 2171 index (Immune >165)
[2022-11-12 04:07] LABS: Chlamydia By Nucleic Acid AMP Negative (Negative)
[2022-11-14 15:32] LABS: Gonococcus By Nucleic Acid AMP Negative (Negative)
[2022-11-23 16:13] LABS: HPV Reflexed? NOT INDICATED
== END | disposition home or self-care (01) ==
LOC: WOBLAB 15:46
PROVIDERS: Visit Provider Obstetrics & Gynecology
DX: Z34.81 Encounter for supervision of other normal pregnancy, first trimester (principal)
CPT/HCPCS: 36415; 80053; 82570; 83615; 84156; 85025; 86703; 86762; 86780; 86787; 86803; 87086; 87088; 87340; 87491; 87591; 88175; G0145

== ENCOUNTER → 2022-12-15 | Outpatient (CLI) | payer BC, SELFPAY ==
[2022-12-15 11:43] LABS: Glucose Challenge Gest 1H 50g 151 mg/dL (70-140)
== END | disposition home or self-care (01) ==
LOC: WOBLAB 10:35
PROVIDERS: Visit Provider Obstetrics & Gynecology
DX: Z34.81 Encounter for supervision of other normal pregnancy, first trimester (principal)
CPT/HCPCS: 36415; 82950

== ENCOUNTER → 2022-12-20 | Outpatient (CLI) | payer BC, SELFPAY ==
[2022-12-20 09:47] LABS: Glucose GTT-Gestation. Fasting 106 mg/dL (<105)
[2022-12-20 11:35] LABS: Glucose GTT-Gestational 1 Hr 207 mg/dL (<190)
[2022-12-20 11:36] LABS: Glucose GTT-Gestational 2 Hr 204 mg/dL (<165)
[2022-12-20 12:37] LABS: Glucose GTT-Gestational 3 Hr 117 L (<145)
== END | disposition home or self-care (01) ==
LOC: WOBLAB 08:40
PROVIDERS: Visit Provider Obstetrics & Gynecology
DX: O24.912 Unspecified diabetes mellitus in pregnancy, second trimester (principal); Z3A.00 Weeks of gestation of pregnancy not specified
CPT/HCPCS: 36415; 82951; 82952

== ENCOUNTER → 2023-01-11 | Outpatient (CLI) | payer BC, SELFPAY | END | disposition home or self-care (01) | LOC: LABSPEC 10:01 | PROVIDERS: Visit Provider Obstetrics & Gynecology | DX: R35.0 Frequency of micturition (principal) | CPT/HCPCS: 87077; 87086; 87088; 87186 ==

== ENCOUNTER 2023-05-18 15:15 | Outpatient (CLI) | payer BC, SELFPAY ==
[2023-05-18] VITALS (11 sets, daily range): BP systolic 116–137; BP diastolic 62–93; PULSE 98–114; TEMP 36.6; O2SAT 94; BMI 48.6
[2023-05-18 16:04] LABS: AST(SGOT) 13 U/L (15-37); Alanine Aminotransfer ALT/SGPT 17 U/L (13-56); Creatinine, Serum 0.48 mg/dL (0.55-1.02); EST Glomerular Filtration Rate 163 mL/min (>60); Est Glom Filt Rate - Afr Amer 197 mL/min (>60); Estimated Creatinine Clearance 131.67 ml/min; Uric Acid 3.8 mg/dL (2.6-6.0)
[2023-05-18 16:07] LABS: Hematocrit 38.3 % (37-47); Hemoglobin 12.7 g/dL (12.0-15.0); Mean Corp Hgb Conc 33.2 g/dL (32-36); Mean Corpuscular Hgb 29.3 pg (27.0-32.0); Mean Corpuscular Volume 88.5 fL (81-99); Mean Platelet Vol. 9.9 fl (6.2-12.0); Platelet Count 375 K/mm3 (150-450); RBC Distribution Width CV 14.3 % (11.6-14.6); RBC Distribution Width SD 46.1 fl (35.1-43.9); Red Blood Count 4.33 M/mm3 (4.2-5.4)
[2023-05-18 16:19] LABS: Protein:Creat Ratio 196 mg/g CRE (0-200)
[2023-05-18 16:28] LABS: LDH 137 U/L (84-246)
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
== END 2023-05-18 17:00 | disposition home or self-care (01) ==
LOC: WPOUT 15:25 → WP 15:26
PROVIDERS: Referring Provider Obstetrics & Gynecology; Visit Provider Obstetrics & Gynecology
DX: O99.891 Other specified diseases and conditions complicating pregnancy (principal); R51.9 Headache, unspecified; Z3A.00 Weeks of gestation of pregnancy not specified
CPT/HCPCS: 36415; 59025; 59050; 82565; 82570; 83615; 84156; 84450; 84460; 84550; 85027; 99221; G0378

== ENCOUNTER → 2023-05-19 | Outpatient (CLI) | payer BC, SELFPAY | END | disposition home or self-care (01) | LOC: LABSPEC 10:03 | PROVIDERS: Visit Provider Obstetrics & Gynecology | DX: N39.0 Urinary tract infection, site not specified (principal) | CPT/HCPCS: 87077; 87086; 87088 ==

== ENCOUNTER → 2023-06-02 | Outpatient (CLI) | payer BC, SELFPAY ==
[2023-06-02 13:03] LABS: Absolute Lymphocyte Count 2.77 X10^3/uL (0.83-4.51); Absolute Neutrophil Count 9.4 X10^3/uL (2.0-7.7); Basophil# 0.03 X10^3/uL; Basophil% 0.2 % (0-1); Eosinophil# 0.12 X10^3/uL; Eosinophils% 0.9 % (0-5); Hematocrit 39.9 % (37-47); Hemoglobin 13.3 g/dL (12.0-15.0); Lymphocyte # 2.77 X10^3/ul (0.83-4.51); Lymphocyte % 21.4 % (19-41); Mean Corp Hgb Conc 33.3 g/dL (32-36); Mean Corpuscular Hgb 29.4 pg (27.0-32.0); Mean Corpuscular Volume 88.1 fL (81-99); Monocyte# 0.46 X10^3/uL; Monocyte% 3.6 % (0-10); NRBC Flagged by Analyzer 0 % (0-5); Neutrophil # 9.41 X10^3/uL (2.7-7.7); Neutrophil % 72.9 % (47-70); Platelet Count 378 K/mm3 (150-450); RBC Distribution Width CV 14.6 % (11.6-14.6); RBC Distribution Width SD 47.1 fl (35.1-43.9); Red Blood Count 4.53 M/mm3 (4.2-5.4); White Blood Count 12.9 K/mm3 (4.4-11.0)
[2023-06-02 13:18] LABS: ALB/GLOB Ratio 0.6 RATIO (0.9-2.4); AST(SGOT) 16 U/L (15-37); Alanine Aminotransfer ALT/SGPT 19 U/L (13-56); Albumin, Serum 2.6 g/dL (3.2-5.0); Alkaline Phosphatase 168 U/L (45-117); Anion Gap 9 (5-15); BUN 6 mg/dL (7-18); BUN/Creat Ratio 11.1 RATIO (10-20); Calcium,Total 9.1 mg/dL (8.5-10.1); Chloride 108 mmol/L (98-107); Creatinine, Serum 0.54 mg/dL (0.55-1.02); EST Glomerular Filtration Rate 142 mL/min (>60); Est Glom Filt Rate - Afr Amer 172 mL/min (>60); Globulin 4.4 g/dL (2.2-4.2); Glucose 86 mg/dL (74-106); LDH 192 U/L (84-246); Potassium 4.2 mmol/L (3.5-5.1); Sodium Level 138 mmol/L (136-145)
== END | disposition home or self-care (01) ==
LOC: WOBLAB 09:13
PROVIDERS: Visit Provider Obstetrics & Gynecology
DX: Z34.83 Encounter for supervision of other normal pregnancy, third trimester (principal)
CPT/HCPCS: 36415; 80053; 83615; 85025; 87077; 87086; 87088; 87186

== ENCOUNTER 2023-06-03 20:05 | Inpatient (IN) | payer BC, SELFPAY ==
[2023-06-03] VITALS (54 sets, daily range): BP systolic 120–155; BP diastolic 54–92; PULSE 89–128; RESP 16–24; TEMP 36.4–36.9; O2SAT 85–100; BMI 49.1
[2023-06-03 17:24] LABS: Mucous, Urine 0 SEEN /hpf (<or=2+)
[2023-06-03 17:27] LABS: Hematocrit 37.2 % (37-47); Hemoglobin 12.5 g/dL (12.0-15.0); Mean Corp Hgb Conc 33.6 g/dL (32-36); Mean Corpuscular Hgb 29.6 pg (27.0-32.0); Mean Corpuscular Volume 88.2 fL (81-99); Mean Platelet Vol. 9.8 fl (6.2-12.0); Platelet Count 368 K/mm3 (150-450); RBC Distribution Width CV 14.2 % (11.6-14.6); RBC Distribution Width SD 45.2 fl (35.1-43.9); Red Blood Count 4.22 M/mm3 (4.2-5.4); White Blood Count 13.7 K/mm3 (4.4-11.0)
[2023-06-03 17:31] LABS: Color, Urine Yellow (Yellow); Glucose, Dipstick Normal (Normal); Leukocyte Esterase-Dipstick 500 /ul (Negative); Nitrite-Dipstick Negative (Negative); Occult Blood-Urine 25 /ul (Negative); Protein-Dipstick 30 mg/dl (Negative); Urine Bilirubin Dipstick Negative (Negative); Urine Clarity Sl. Cloudy (Clear); Urine Urobilinogen 1 mg/dl (Normal); Urine pH 6.5 (5.0 - 8.0)
[2023-06-03 17:41] LABS: Protein, Urine (Random) 29.4 mg/dL (<11.9); Protein:Creat Ratio 147 mg/g CRE (0-200)
[2023-06-03 17:57] LABS: Ketone-Dipstick 150 mg/dl (Negative)
[2023-06-03 17:59] LABS: AST(SGOT) 15 U/L (15-37); Alanine Aminotransfer ALT/SGPT 17 U/L (13-56); EST Glomerular Filtration Rate 157 mL/min (>60); Est Glom Filt Rate - Afr Amer 189 mL/min (>60); Uric Acid 4.6 mg/dL (2.6-6.0)
[2023-06-03 18:01] LABS: Amorphous Sediment 1+ URATE; Bacteria RARE /hpf (None Seen); Red Blood Cells-Urine 0-5 SEEN /hpf (0-5); Squamous Epithelial Cells - UA 0-5 SEEN /hpf (5-10); White Blood Cells 25-50 SEEN /hpf (0-5)
--- NOTE | 2023-06-03 18:33 | HP.PCM.OB_ITS ---
History and Physical Date of Admission: 06/03/23 HPI: 28-year-old G2, P1 at 35/4 weeks, MESFIN 07/04/2023 by first trimester ultrasound, presenting with decreased movement. Patient reports that she was lying on the couch today and realized that she had not felt the baby move very much. Therefore she came to the hospital. She is now feeling normal movement. She also reported a tension type headache of a tight band across her forehead that is present. This has been present today. She did not take any Tylenol at home. Reports that it feels like her normal tension headaches, though it has lasted a little longer. However she does admit she did not take any medication for this or do any supportive care. Reported that upon arrival she did have some flecks in her vision, that have since resolved. Denies chest pain or shortness of breath, nausea or vomiting, diarrhea constipation. Denies right upper quadrant pain. Denies regular contractions, leaking of fluid. Reports some pelvic pressure. complicated by: Class III obesity, gestational diabetes mellitus type A2 on Levemir 15 units every morning and 90 units every afternoon, Humalog 10 units 3 times daily, GBS bacteria, history of preeclampsia, bipolar disorder OB/gyne history: G1: 36-week section, preeclampsia G2: Current Medical history: 1. Class III obesity 2. Bipolar disorder 3. Gestational diabetes, diagnosed early, possible pregestational diabetes considered Surgical history: 1. Knee arthroscopy 2015 2. Kidney stone removal 2013 3. Back surgery in 2019 and 2019 4. [place] tooth extraction 2021 5. section in 2020 Medications: 1. Buspirone 2. Cariprazine 3. Effexor 4. ASA 81 mg 5. Levemir 15u qAM, 90q qPM 6. Humalog 10u TID Allergies: NKDA Family history: Noncontributory. No history of blood clots or bleeding disorders Social history: Denies history of tobacco, alcohol, drug use Review of system: Negative otherwise stated above Physical exam: Blood pressure 130?150s/80s, heart rate 100s General: No acute distress, comfortable in bed HEENT: Normocephalic/atraumatic, PERRLA Cardiorespiratory: No increased effort, heart rate regular Abdomen: Soft, nontender, gravid, obese. No right upper quadrant pain Extremities: No pedal edema Neurologic: Cranial nerves II through XII grossly intact, no focal deficits Musculoskeletal: Moves all extremities equally heart rate: 140/mod kenzie/+accel/no decel [place]: irregular Assessment/plan: 28-year-old G2, P1 at 35/4 weeks, MESFIN 07/04/2023 by first trimester ultrasound, presenting with decreased movement and headache. ?Patient is now feeling normal movement. NST has been reactive. ?Blood pressure slightly elevated 130s?150s/80s. Preeclampsia labs within normal limits. No proteinuria. ?Patient reports tension type headache. States that she had a few seconds of floaters in vision upon arrival, this is resolved. States that she has had history of tension headaches. States that this did last a little longer, however she had not taken any Tylenol. Patient just received Tylenol 1 g here. Appears to be tension type in quality, however if headache is not resolved with Tylenol, will then diagnose as preeclampsia with severe features. ? Patient is orally hydrating, last ate at 1230 today. Reports that she is very hungry. ?Patient is comfortable with this plan at this time. Reviewed with charge nurse. ? We will give Celestone at this time and repeat dose in 24 hours. Reviewed that this will increase patient's blood sugars. We will need to increase her dosages of insulin in order to treat this. Patient understands this risk and accepts.
[2023-06-03] MEDS: Acetaminophen 325 MG Tablet 1000 MG PO (18:42)
[2023-06-03] MEDS: Betamethasone/Betamethasone 30 MG/5 ML Vial 12 MG IM (19:46)
[2023-06-03] MEDS: Magnesium Sulfate 4gm/100mL 4 GM/100 ML IV.SOLN. IV (20:34)
[2023-06-03] MEDS: Sodium Citrate/Citric Acid 30 ML UDC PO (20:34)
[2023-06-03] MEDS: Lactated Ringers 1,000 ML 999 ML IV (20:34)
--- NOTE | 2023-06-03 20:45 | OP.PCM_ITS ---
Maternal Data Information Final MESFIN: 07/04/23 Final MESFIN Source: US <20 weeks Details Operative Information Date of Procedure: 06/03/23 Pre-Operative Diagnosis: [place]vis intrauterine , pre-term, pre- eclampsia with severe features, desires permanent sterilization Post-Operative Diagnosis: [place] intrauterine , pre-term, pre- eclampsia with severe features, desires permanent sterilization Indications for : Repeat Elective and Desires elective sterilization Indications Narrative: This is a 28-year-old G2, P1 at 35/4 weeks, MESFIN 07/04/2023 by first trimester ultrasound, admitted for preeclampsia with severe features based on elevated blood pressures and persistent unresolved headache with intermittent visual disturbances. Repeat section bilateral tubal ligation. All risk, benefits, alternatives discussed with the patient. Risk include but are not limited to: Risk of bleeding to the point of transfusion, infection, injury to surrounding tissue including bowel/bladder potentially requiring prolonged Talley catheter use, VTE, ICU admission, risk of regret of tubal ligation. Patient aware and consented. Classification: JASON Procedure Type: low transverse (Bilateral salpingectomy) public health informatician #1: Erinn Fink Type of Anesthesia: Spinal Antibiotic Given: Ancef 2 grams IV x1 and Zithromax 500 mg/5 mL X1 Estimated Blood Loss: 700 cc Fluids Replaced: 1000 cc Findings Description of Procedure: Procedure: Patient taken to the operating room spinal anesthesia placed. Patient placed in supine position with left lateral tilt. Prepped and draped in usual sterile fashion. Pfannenstiel skin incision made with scalpel and carried down through subcutaneous tissue. Fascia nicked on either side of the midline and extended bilaterally using Watson scissors. Luis Alfredo clamps placed the superior fascial edge which was tented up and underlying rectus muscles were dissected off bluntly and sharply at midline using Watson scissors. Luis Alfredo clamps then moved to the inferior fascial edge and underlying rectus muscles were dissected off in a similar fashion. Rectus muscles were noted to be very at midline. Peritoneum grasped with hemostat and peritoneum entered using Metzenbaum scissors. Entry extended bluntly and bladder blade placed. Low transverse uterine incision made with scalpel and extended bluntly. Amniotomy clear fluid. Hand placed into the uterine cavity and head elevated to the level of the hysterotomy. Bladder blade removed. Head delivered followed by body with used of gentle fundal pressure. Nuchal cord x1, loose, reduced. Cord clamped and cut. Baby handed to nursing. Spontaneous delivery of placenta. Uterus exteriorized and cleared of all clots. Hysterotomy closed with a running stitch followed by second vertical imbricating suture. Right fallopian tube identified from the cornua to the fimbriated end, grasped with [place] clamps, and removed along mesosalpinx using LigaSure device. Left fallopian tube grasped with Mamie clamps and removed along mesosalpinx using LigaSure device. Mesosalpinx hemostatic bilaterally. Uterus replaced into the abdominal cavity. Hemostasis confirmed. Peritoneum closed with a running stitch. Fascia closed with running stitch. Subcutaneous tissue reapproximated using suture. Skin closed with a running subcuticular stitch. At the end of the procedure all needle, lap, sponge counts were correct. Urine output: 200 cc clear urine Continue magnesium sulfate for 24 hours. Continue Ancef for 24 hours for infection prophylaxis due to BMI. We will start Lovenox in 12 hours, continue twice daily. Patient will go home on 2 weeks of Lovenox prophylactically due to class III obesity and severe preeclampsia. Infant A Gender: Male (1 minute): 9 (5 minute): 9 Complications Complications: None
[2023-06-03] MEDS: Magnesium Sulfate 4gm/100mL 2 GM/50 ML IV.SOLN. IV (20:57)
[2023-06-03] MEDS: Magnesium Sulfate 20 GM/500 ML BAG IV (21:11)
[2023-06-03 21:15] LABS: Syphilis Antibodies Non-reactive
[2023-06-03] MEDS: Cefazolin 2 GM in 0.9% Normal Saline 100 ML IV (21:22)
[2023-06-03] MEDS: Lactated Ringers 1,000 ML 800 ML IV (21:35)
--- NOTE | 2023-06-03 21:45 | FALS_PTH ---
PATIENT: GENARO GAYTAN LOC: [facility] U#:[id number] AGE/SX: 28/F ROOM: WP012 RE06/03/[address]: Dr. Patrica Weber DO : 1995 BED: 1 DIS: 06/06/2023 SPEC #: [id number] RECD: 06/04/23 03:31 STATUS: BERNA REMartita #: [id number] EDUARD: 06/03/23 21:[address]: Patrica Weber DEPT: SURGICAL PATHOLOGY RECD BY: Ciarra Silva ENTERED: 06/06/23 08:45 SP TYPE: FALL TUBES OTHR DR: No Primary Care Phys Tissues: Fallopian tube Procedures: Surgery Specimen Level II HEADER OPERATION: Tubal ligation PRE-OP DIAGNOSIS: Not noted TISSUE SUBMITTED: Fallopian tube MICROSCOPIC DIAGNOSIS Bilateral fallopian tubes, salpingectomy: Bilateral fallopian tubes, no pathologic diagnosis. SJ: 06/07/2023 MICROSCOPIC DESCRIPTION Slides are reviewed. GROSS DESCRIPTION Received in fixative is one container labeled with the patient's name and designated bilateral fallopian tubes. The specimen consists of bilateral fallopian tubes including fimbrial ends measuring 6 cm in length and 0.5 cm in diameter and 5.5 cm in length and 0.6 cm in diameter. Suture is present free in container. The fallopian tubes cannot be identified as right or left. Sections reveal unremarkable cut surfaces. Purchasing Manager/Sales sections are submitted in two cassettes with each cassette containing one fallopian tube. / SJ: 06/06/23 TC:4 CPT: 56561 x2
[2023-06-03 21:50] LABS: Bedside Glucose 74 mg/dL (74-106)
[2023-06-03] MEDS: Oxytocin 15 Units/NS 250ml 15 UNITS/250 ML IV.SOLN 83 UNITS IV ×2 (22:42→23:56)
[2023-06-03] MEDS: Carboprost Tromethamine 250 MCG/ML Ampul IM (23:21)
[2023-06-03] MEDS: miSOPROStol 200 MCG Tablet 1000 MCG RC (23:23)
[2023-06-03] MEDS: HYDROmorphone 1 MG/ML Syringe IV (23:40)
[2023-06-03] MEDS: 0.9% Saline Lock 10 ML Syringe IV (23:55)
[2023-06-04] VITALS (133 sets, daily range): BP systolic 106–151; BP diastolic 57–86; PULSE 70–133; RESP 16–36; TEMP 36.1–37.3; O2SAT 87–100
[2023-06-04] LABS: International Normalized Ratio 1.1; Partial Thromboplast Time 29.5 Seconds (24.1-36.2); Prothrombin Time (Protime)PT. 14.4 SECONDS (11.7-14.9)
--- NOTE | 2023-06-04 | PCM.PN.OB ---
Subjective Subjective Patient asymptomatic. Feeling warm. No dizziness or lightheadedness. Objective Data Objective Data Vital Signs: Vital Signs Temp Pulse Resp BP Pulse Ox 98.5 F 115 H 16 140/66 H 100 06/03/23 20:38 06/03/23 23:56 06/03/23 20:38 06/03/23 23:55 06/03/23 23:56 Weight: 117.934 kg Body Mass Index (BMI) 49.1 Intake & Output: Intake and Output for Last 24 Hours 06/02/23 06/03/23 06/04/23 23:59 23:59 23:59 Intake Total 2467.44 / 2467.44 Balance 2467.44 / 2467.44 Lab / Micro Data Attestation: I reviewed the patient's lab results. 06/03/23 17:15 06/03/23 17:15 Labs: Laboratory Results - last 24 hr 06/03/23 17:15: WBC 13.7 H, RBC 4.22, Hgb 12.5, Hct 37.2, MCV 88.2, MCH 29.6, MCHC 33.6, RDW Std Deviation 45.2 H, RDW Coeff of Laila 14.2, Plt Count 368, MPV 9.8, Creatinine 0.50 L, Estim Creat Clear Calc 126.40, Est GFR (MDRD) Af Amer 189, Est GFR (MDRD) Non-Af 157, Uric Acid 4.6, AST 15, ALT 17, Urine Color Yellow, Urine Clarity Sl. Cloudy, Urine pH 6.5, Ur Specific [place] 1.020, Urine Protein 30 H, Urine Glucose (UA) Normal, Urine Ketones 150 A*, Urine Occult Blood 25 H, Urine Nitrite Negative, Urine Bilirubin Negative, Urine Urobilinogen 1 H, Ur Leukocyte Esterase 500 H, Urine RBC 0-5 SEEN, Urine WBC 25-50 SEEN, Ur Squamous Epith Cells 0-5 SEEN, Amorphous Sediment 1+ URATE, Urine Bacteria RARE, Urine Mucus 0 SEEN, U Random Total Protein 29.4 H, Urine Creatinine 200.00, Protein/Creatinin Ratio 147 06/03/23 20:20: Syphilis Total Ab Non-reactive, Blood Type O POSITIVE, Antibody Screen NEGATIVE 06/03/23 20:40: POC Glucose 74 Physical Exam Const alert, oriented x3 and no apparent distress HEENT normocephalic Resp normal respiratory effort and no use of accessory muscles Cardio regular rhythm Cardio Narrative: Slightly tachycardic. GI soft to palpation and non-tender GI Narrative: Uterus firm, 2 cm below umbilicus. Dressing intact. Narrative: No vaginal lacerations. Some clot noted in the lower uterine segment, removed on bimanual examination. Bleeding minimal after removal of clot. Extremity no pedal edema Neuro moves all extremities, no focal motor deficits and no sensory deficits noted Psych mental status grossly normal Assessment & Plan (1) Severe pre-eclampsia: QUALIFIERS: Trimester: third trimester Qualified Code(s): O14.13 - Severe pre-eclampsia, third trimester PLAN: Postop day 1 status post repeat section bilateral salpingectomy. Now complicated by hemorrhage. Patient had minimal bleeding during surgery. ?Called at 2318 for some bleeding, RN reported some clots with fundal massage but firm fundus. Orders given for Hemabate 0.25 mg x1 and 1000 mcg cytotec per rectum. ?Called again at 2325 for more bleeding. Arrived at 2334. Patient had received Hemabate at 2321 and Cytotec at 2323. ?Orders for tranexamic acid 1 g given, started at 2340. ?Order for bolus of Pitocin started at 2344. Will follow with second bag of Pitocin. ?Upon arrival to the room, patient asymptomatic and in stable condition. Bleeding on exam noted vaginally. Dressing intact. Bedside ultrasound completed: Noting no color Doppler flow to the endometrial cavity, some blood clot noted in the uterine cavity. Talley catheter draining clear urine. Bimanual exam completed noting clot in the lower cervix and uterine segment. Patient given IV dose of Dilaudid for pain control. Bimanual exam then completed with removal of clot from the lower uterine segment/cervix. After removal of clot, bleeding was noted to be minimal. Vagina cleared with a laparotomy sponge. Uterus firm and well below umbilicus. ?CBC, PT/PTT/INR pending. Will consider blood transfusion based on labs. Patient agrees to transfusion if needed. ?Vitals are stable, patient is slightly tachycardic. Although she was slightly tachycardic on admission as well. (2) Delivery by section: (3) Gestational diabetes mellitus: QUALIFIERS: Gestational diabetes mellitus control: insulin-controlled Trimester: third trimester Qualified Code(s): O24.414 - Gestational diabetes mellitus in , insulin controlled (4) hemorrhage: (5) Other acute postprocedural pain:
[2023-06-04 00:04] LABS: Absolute Lymphocyte Count 1.98 X10^3/uL (0.83-4.51); Absolute Neutrophil Count 14.1 X10^3/uL (2.0-7.7); Basophil# 0.05 X10^3/uL; Basophil% 0.3 % (0-1); Eosinophil# 0.03 X10^3/uL; Eosinophils% 0.2 % (0-5); Hematocrit 33.1 % (37-47); Hemoglobin 10.8 g/dL (12.0-15.0); Lymphocyte # 1.98 X10^3/ul (0.83-4.51); Lymphocyte % 11.7 % (19-41); Mean Corp Hgb Conc 32.6 g/dL (32-36); Mean Corpuscular Hgb 29.3 pg (27.0-32.0); Mean Corpuscular Volume 89.9 fL (81-99); Monocyte# 0.21 X10^3/uL; Monocyte% 1.2 % (0-10); NRBC Flagged by Analyzer 0 % (0-5); Neutrophil # 14.06 X10^3/uL (2.7-7.7); Neutrophil % 82.8 % (47-70); Platelet Count 376 K/mm3 (150-450); RBC Distribution Width CV 14.2 % (11.6-14.6); RBC Distribution Width SD 46.3 fl (35.1-43.9); Red Blood Count 3.68 M/mm3 (4.2-5.4)
[2023-06-04] MEDS: Ketorolac 30 MG/ML Syringe IV ×4 (00:04→17:17)
[2023-06-04] MEDS: Loperamide 2 MG Capsule 4 MG PO (00:11)
[2023-06-04] MEDS: 0.9% Saline Lock 10 ML Syringe IV ×6 (00:30→22:01)
[2023-06-04] MEDS: Insulin Glargine-YFGN 100 UNIT/ML Pen 40 UNIT SC (00:56)
[2023-06-04 01:15] LABS: Bedside Glucose 166 mg/dL (74-106)
[2023-06-04] MEDS: busPIRone 15 MG TABLET 30 MG PO ×2 (01:20→21:55)
[2023-06-04] MEDS: Venlafaxine XR 150 MG Capsule PO ×2 (01:20→21:55)
[2023-06-04] MEDS: Acetaminophen 500 MG Tablet 1000 MG PO ×4 (01:21→18:54)
--- NOTE | 2023-06-04 02:30 | NURSING ---
magnesium rate verified with Blair Moise RN at 2056
[2023-06-04] MEDS: HYDROmorphone 1 MG/ML Syringe IV ×2 (02:45→06:52)
[2023-06-04] MEDS: Lactated Ringers 1,000 ML 50 ML IV (02:59)
[2023-06-04 03:33] LABS: Pathology Specimen OB SEE PATHOLOGY REPORT
[2023-06-04] MEDS: Cefazolin 2 GM in 0.9% Normal Saline 100 ML IV ×3 (05:20→22:01)
[2023-06-04 06:34] LABS: Absolute Lymphocyte Count 1.64 X10^3/uL (0.83-4.51); Absolute Neutrophil Count 20.2 X10^3/uL (2.0-7.7); Basophil# 0.05 X10^3/uL; Basophil% 0.2 % (0-1); Hematocrit 32.9 % (37-47); Hemoglobin 10.8 g/dL (12.0-15.0); Lymphocyte # 1.64 X10^3/ul (0.83-4.51); Lymphocyte % 7.2 % (19-41); Mean Corp Hgb Conc 32.8 g/dL (32-36); Mean Corpuscular Hgb 30.2 pg (27.0-32.0); Mean Corpuscular Volume 91.9 fL (81-99); Monocyte# 0.52 X10^3/uL; Monocyte% 2.3 % (0-10); NRBC Flagged by Analyzer 0 % (0-5); Neutrophil # 20.22 X10^3/uL (2.7-7.7); Neutrophil % 89.2 % (47-70); POSITIVE DIFFERENTIAL YES; Platelet Count 322 K/mm3 (150-450); RBC Distribution Width CV 14.2 % (11.6-14.6); RBC Distribution Width SD 47.8 fl (35.1-43.9); Red Blood Count 3.58 M/mm3 (4.2-5.4); White Blood Count 22.7 K/mm3 (4.4-11.0)
[2023-06-04 06:36] LABS: Differential Indicated SCAN CRITERIA MET
[2023-06-04 07:02] LABS: Differential Comment SCANNED
[2023-06-04 07:14] LABS: ALB/GLOB Ratio 0.6 RATIO (0.9-2.4); AST(SGOT) 14 U/L (15-37); Alanine Aminotransfer ALT/SGPT 14 U/L (13-56); Albumin, Serum 2.1 g/dL (3.2-5.0); Alkaline Phosphatase 127 U/L (45-117); Anion Gap 7 (5-15); BUN 7 mg/dL (7-18); BUN/Creat Ratio 11.4 RATIO (10-20); Calcium,Total 7.7 mg/dL (8.5-10.1); Chloride 104 mmol/L (98-107); Creatinine, Serum 0.62 mg/dL (0.55-1.02); EST Glomerular Filtration Rate 123 mL/min (>60); Est Glom Filt Rate - Afr Amer 148 mL/min (>60); Estimated Creatinine Clearance 101.94 ml/min; Globulin 3.5 g/dL (2.2-4.2); Glucose 157 mg/dL (74-106); Magnesium 10.5 mg/dL (1.6-2.6); Potassium 4.5 mmol/L (3.5-5.1); Protein, Total 5.6 g/dL (6.4-8.2); Sodium Level 132 mmol/L (136-145)
--- NOTE | 2023-06-04 07:15 | NURSING ---
bedside report given to Bandar Shelton RN who is assuming care of pt at this time
--- NOTE | 2023-06-04 08:29 | NURSING ---
late entry charting done by this RN documented on this pt due to pt care and high pt acuity level
--- NOTE | 2023-06-04 08:31 | NURSING ---
See hemorrhage checklist for further documentation during pt hemorrhage
[2023-06-04 09:15] LABS: Bedside Glucose 114 mg/dL (74-106)
[2023-06-04] MEDS: Insulin Lispro 100 UNIT/ML INSULN.PEN SC ×3 (09:52→17:43)
[2023-06-04 10:03] LABS: Magnesium 4.3 mg/dL (1.6-2.6)
[2023-06-04] MEDS: Senna/Docusate Sodium 1 Tablet PO (10:25)
[2023-06-04] MEDS: Enoxaparin 40 MG/0.4 ML Syringe SC ×2 (10:25→21:59)
--- NOTE | 2023-06-04 10:45 | NURSING ---
1000: Phone call placed to Jaylene Weber to update on pts mag level. No answer, left message to call back. 1040: Phone call placed again to Jaylene Weber, left message to call unit 1043: Phone call placed to Dr. Art Weber
[2023-06-04] MEDS: Magnesium Sulfate 20 GM/500 ML BAG IV (10:53)
[2023-06-04 12:24] LABS: Bedside Glucose 108 mg/dL (74-106)
[2023-06-04] MEDS: oxyCODONE 5 MG Tablet PO ×3 (14:27→22:12)
[2023-06-04 17:41] LABS: Bedside Glucose 109 mg/dL (74-106)
[2023-06-04 18:21] LABS: Magnesium 5.3 mg/dL (1.6-2.6)
[2023-06-04] MEDS: Labetalol 100 MG Tablet PO (18:54)
[2023-06-04] MEDS: Ibuprofen 600 MG Tablet PO (21:56)
[2023-06-04] MEDS: CARIPRAZINE HCL 3 MG CAPSULE PO (21:57)
[2023-06-04] MEDS: Insulin Glargine-YFGN 100 UNIT/ML Pen 20 UNIT SC (22:59)
[2023-06-04 23:22] LABS: Bedside Glucose 128 mg/dL (74-106)
[2023-06-05] VITALS (10 sets, daily range): BP systolic 117–144; BP diastolic 61–82; PULSE 68–101; RESP 14–16; TEMP 36.6–36.8; O2SAT 95–99
[2023-06-05] MEDS: Acetaminophen 500 MG Tablet 1000 MG PO ×4 (01:00→20:22)
[2023-06-05] MEDS: Ibuprofen 600 MG Tablet PO ×3 (03:51→20:23)
[2023-06-05] MEDS: Cefazolin 2 GM in 0.9% Normal Saline 100 ML IV (05:58)
[2023-06-05] MEDS: Labetalol 100 MG Tablet PO ×2 (06:50→20:23)
[2023-06-05 07:11] LABS: Absolute Lymphocyte Count 3.12 X10^3/uL (0.83-4.51); Basophil# 0.05 X10^3/uL; Basophil% 0.3 % (0-1); Eosinophil# 0.08 X10^3/uL; Eosinophils% 0.5 % (0-5); Hematocrit 26.4 % (37-47); Hemoglobin 8.6 g/dL (12.0-15.0); Lymphocyte # 3.12 X10^3/ul (0.83-4.51); Mean Corp Hgb Conc 32.6 g/dL (32-36); Mean Corpuscular Hgb 29.5 pg (27.0-32.0); Mean Corpuscular Volume 90.4 fL (81-99); Mean Platelet Vol. 9.8 fl (6.2-12.0); Monocyte# 0.81 X10^3/uL; Monocyte% 4.7 % (0-10); NRBC Flagged by Analyzer 0 % (0-5); Neutrophil # 12.98 X10^3/uL (2.7-7.7); Platelet Count 306 K/mm3 (150-450); RBC Distribution Width CV 14.7 % (11.6-14.6); RBC Distribution Width SD 48.6 fl (35.1-43.9); Red Blood Count 2.92 M/mm3 (4.2-5.4); White Blood Count 17.3 K/mm3 (4.4-11.0)
[2023-06-05 07:31] LABS: Bedside Glucose 81 mg/dL (74-106)
[2023-06-05] MEDS: Insulin Lispro 100 UNIT/ML INSULN.PEN SC ×2 (07:33→20:22)
--- NOTE | 2023-06-05 10:12 | PN.OBGYN_ITS ---
Subjective Subjective No overnight complaints. Denies headache, vision changes, chest pain, shortness of breath, nausea vomit, right upper quadrant pain. Objective Data Objective Data Vital Signs: Vital Signs Temp Pulse Resp BP Pulse Ox O2 Del Method O2 Flow Rate 97.8 F 101 H 14 130/61 H 99 Room Air 2 06/05/23 08:35 06/05/23 08:36 06/05/23 08:35 06/05/23 08:36 06/05/23 08:36 06/05/23 08:35 06/04/23 04:01 Oxygen Flow Rate (L/min) 2 Oxygen Delivery Method Room Air Weight: 260 lb Body Mass Index (BMI) 49.1 Intake & Output: Intake and Output for Last 24 Hours 06/03/23 06/04/23 06/05/23 23:59 23:59 23:59 Intake Total 2741.67 / 2741.67 3825.83 / 3825.83 110 / 110 Output Total 2708 / 2708 1200 / 1200 Balance 33.67 / 33.67 2625.83 / 2625.83 110 / 110 Lab / Micro Data 06/05/23 07:05 06/04/23 06:20 Labs: Laboratory Results - last 24 hr 06/04/23 12:06: POC Glucose 108 H 06/04/23 17:21: POC Glucose 109 H 06/04/23 17:30: Magnesium 5.3 H* 06/04/23 22:57: POC Glucose 128 H 06/05/23 07:05: WBC 17.3 H, RBC 2.92 L, Hgb 8.6 L, Hct 26.4 L, MCV 90.4, MCH 29.5, MCHC 32.6, RDW Std Deviation 48.6 H, RDW Coeff of Laila 14.7 H, Plt Count 306, MPV 9.8, Immature Gran % (Auto) 1.500 H, Neut % (Auto) 75.0 H, Lymph % (Auto) 18.0 L, [place] % (Auto) 4.7, Eos % (Auto) 0.5, Baso % (Auto) 0.3, Absolute Neuts (auto) 13.0 H, Absolute Lymphs (auto) 3.12, Nucleated RBC % 0 06/05/23 07:12: POC Glucose 81 Physical Exam Const alert, oriented x3, no apparent distress, average body habitus, healthy appearing and well nourished HEENT normocephalic and moist oral mucous membranes Eyes PERRL Neck full ROM Resp normal respiratory effort, no retractions and no use of accessory muscles GI GI Narrative: Soft, nontender, bandage clean dry and intact Extremity normal to inspection and full ROM Neuro moves all extremities and no focal motor deficits Psych mental status grossly normal, affect normal, speech normal and activity/motor behavior normal Assessment & Plan (1) Delivery by section: PLAN: Postoperative day 2 status post repeat section bilateral tubal ligation. Pain well controlled. Breast-feeding. Preeclampsia with severe fea tures currently on labetalol 100 mg twice daily, patient asymptomatic with continue to monitor symptoms and blood pressures. Now status post magnesium. hemorrhage status post 1 unit packed red blood cells patient remains asymptomatic hemoglobin 8.6, continue to monitor repeat CBC in the morning. Educated patient on recovery including hemoglobin and plan for monitoring for preeclampsia with severe features, patient states understanding all questions answered
[2023-06-05] MEDS: Enoxaparin 40 MG/0.4 ML Syringe SC ×2 (10:18→22:57)
[2023-06-05] MEDS: Senna/Docusate Sodium 1 Tablet PO (10:18)
[2023-06-05] MEDS: oxyCODONE 5 MG Tablet PO ×2 (12:03→22:01)
[2023-06-05 12:22] LABS: Bedside Glucose 74 mg/dL (74-106)
[2023-06-05 19:10] LABS: Bedside Glucose 124 mg/dL (74-106)
[2023-06-05] MEDS: 0.9% Saline Lock 10 ML Syringe IV (22:48)
--- NOTE | 2023-06-05 22:55 | NURSING ---
dr woo called with pt update. HS blood sugar for this pt was 92. pt scheduled to get 20 units of insulin glargine SC now. pt received scheduled 5 units of humalog with dinner earlier tonight around 2029. pt asymptomatic at this time. JM states to hold HS dose of long acting insulin and reassess BS in the AM prior to breakfast for her next dose of scheduled humalog.
[2023-06-05] MEDS: Venlafaxine XR 150 MG Capsule PO (22:57)
[2023-06-05] MEDS: busPIRone 15 MG TABLET 30 MG PO (22:58)
[2023-06-05] MEDS: CARIPRAZINE HCL 3 MG CAPSULE PO (22:59)
[2023-06-05 23:23] LABS: Bedside Glucose 92 mg/dL (74-106)
[2023-06-06] VITALS (7 sets, daily range): BP systolic 130–146; BP diastolic 67–77; PULSE 76–83; RESP 16; TEMP 36.1–36.5; O2SAT 91–97
[2023-06-06] MEDS: Ibuprofen 600 MG Tablet PO ×2 (02:44→08:17)
[2023-06-06] MEDS: Acetaminophen 500 MG Tablet 1000 MG PO ×2 (02:44→08:16)
[2023-06-06 05:03] LABS: Absolute Lymphocyte Count 3.92 X10^3/uL (0.83-4.51); Absolute Neutrophil Count 7.4 X10^3/uL (2.0-7.7); Basophil# 0.05 X10^3/uL; Basophil% 0.4 % (0-1); Eosinophil# 0.19 X10^3/uL; Eosinophils% 1.5 % (0-5); Hematocrit 25.1 % (37-47); Lymphocyte # 3.92 X10^3/ul (0.83-4.51); Lymphocyte % 31.1 % (19-41); Mean Corp Hgb Conc 31.9 g/dL (32-36); Mean Corpuscular Hgb 29.4 pg (27.0-32.0); Mean Corpuscular Volume 92.3 fL (81-99); Mean Platelet Vol. 9.5 fl (6.2-12.0); Monocyte# 0.71 X10^3/uL; Monocyte% 5.6 % (0-10); NRBC Flagged by Analyzer 0 % (0-5); Neutrophil # 7.38 X10^3/uL (2.7-7.7); Neutrophil % 58.5 % (47-70); Platelet Count 284 K/mm3 (150-450); RBC Distribution Width CV 15.1 % (11.6-14.6); RBC Distribution Width SD 50.4 fl (35.1-43.9); Red Blood Count 2.72 M/mm3 (4.2-5.4); White Blood Count 12.6 K/mm3 (4.4-11.0)
[2023-06-06] MEDS: Labetalol 100 MG Tablet PO (06:11)
--- NOTE | 2023-06-06 08:34 | PN.OBGYN_ITS ---
Subjective Subjective Patient feeling well. Does have some soreness at the edges of her incision especially at nighttime. Overall feeling well. Lochia minimal at this time. Feeding going well. No issues or concerns at this time. No headache or vision changes, chest pain or shortness of breath, nausea or vomiting, right upper quadrant pain. Objective Data Objective Data Vital Signs: Vital Signs Temp Pulse Resp BP Pulse Ox O2 Del Method O2 Flow Rate 97.7 F L 80 16 140/73 H 97 Room Air 2 06/06/23 08:06 06/06/23 08:32 06/06/23 08:06 06/06/23 08:32 06/06/23 08:08 06/06/23 08:06 06/04/23 04:01 Oxygen Flow Rate (L/min) 2 Oxygen Delivery Method Room Air Weight: 117.934 kg Body Mass Index (BMI) 49.1 Intake & Output: Intake and Output for Last 24 Hours 06/04/23 06/05/23 06/06/23 23:59 23:59 23:59 Intake Total 3825.83 / 3825.83 110 / 110 Output Total 1200 / 1200 Balance 2625.83 / 2625.83 110 / 110 Lab / Micro Data Attestation: I reviewed the patient's lab results. 06/06/23 04:58 06/04/23 06:20 Labs: Laboratory Results - last 24 hr 06/05/23 12:02: POC Glucose 74 06/05/23 18:51: POC Glucose 124 H 06/05/23 22:51: POC Glucose 92 06/06/23 04:58: WBC 12.6 H, RBC 2.72 L, Hgb 8.0 L, Hct 25.1 L, MCV 92.3, MCH 2 9.4, MCHC 31.9 L, RDW Std Deviation 50.4 H, RDW Coeff of Laila 15.1 H, Plt Count 284, MPV 9.5, Immature Gran % (Auto) 2.900 H, Neut % (Auto) 58.5, Lymph % (Auto) 31.1, [place] % (Auto) 5.6, Eos % (Auto) 1.5, Baso % (Auto) 0.4, Absolute Neuts (auto) 7.4, Absolute Lymphs (auto) 3.92, Nucleated RBC % 0 Physical Exam Const alert, oriented x3 and no apparent distress HEENT normocephalic Head and Scalp: atraumatic Neck full ROM Resp normal respiratory effort Cardio regular rate GI normal to inspection, nondistended, normoactive bowel sounds GI Narrative: Uterus 2 cm below umbilicus, dressing clean and dry Back/Spine normal ROM Extremity normal to inspection Extremity Narrative: Minimal pedal edema Neuro no focal motor deficits and no sensory deficits noted Psych mental status grossly normal and affect normal Assessment & Plan (1) hemorrhage: PLAN: Postop day 3 status post repeat section bilateral salpingectomy. Complicated by severe preeclampsia, status post magnesium sulfate for 24 hours postop. Blood pressures well controlled. Labs are stable. Patient also complicated by hemorrhage she received Tranexamic acid, Hemabate, Cytotec, extra Pitocin. Patient was transfused 1 unit of packed red blood cells. Hemoglobin is stable. Will iron supplement on home-going. Discharge home today with a blood pressure check on Tuesday. Reviewed signs and symptoms of preeclampsia (2) Other acute postprocedural pain: (3) Delivery by section: (4) Anemia: (5) Severe pre-eclampsia: QUALIFIERS: Trimester: third trimester Qualified Code(s): O14.13 - Severe pre-eclampsia, third trimester
--- NOTE | 2023-06-06 08:35 | DCINST_ITS ---
Discharge Instructions Diet Discharge Diet: No restrictions Activity Discharge Activity: Return to Normal Activity and May Shower May resume sexual activity in: 4-6 weeks Weight Bearing Status: Weight bearing as tolerated Lifting Restrictions: No greater than 25 pounds Dressing / Incision Call your doctor if your incision/area has: Continuous Slow Oozing, Increased Redness and Swelling at the incision site Call your doctor if you observe: Fever of 101 or Higher, Change in Color, Inability to urinate, Using more than 1 pad per hour, Shortness of breath, Dizziness, Swelling in the ankles, Chest pain and Calf discomfort Remove Dressing in: 1 week Cleanse incision/area with: Soap & Water and Keep Dressing Clean & Dry Follow Up Care Please Follow Up With: Donald Weber MD When: BP check with RN on Tuesday of this week. 2-week and 6-week visit Test Results: Test results from this visit will be discussed in further detail at your follow- up appointment, if applicable. Discharge Plan Admission Admit Date/Time: 06/03/23 20:05 Primary Reason for Your Visit: section Attending Provider: Patrica Weber Primary Care Provider: Care Physician,No Primary Instructions Additional Instructions / Restrictions: Call for blood pressure greater than 160/110, persistent headache with visual disturbances unresolved with Tylenol and ibuprofen, right upper quadrant pain, chest pain or shortness of breath. Take blood sugars fasting a.m. and 2 hours postprandial for 1 meal daily. Discharge Orders/Prescriptions Prescriptions: New oxycodone 5 mg tablet 5 mg PO Q6H PRN (Reason: pain (scale score 7-10)) 4 Days Qty: 14 0RF enoxaparin [Lovenox] 40 mg/0.4 mL syringe 40 mg subcut Q12H 14 Days Qty: 11.2 0RF Continued buspirone 5 mg Tablet 30 mg PO BID [id number] 1 mg Tablet 1 tab PO DAILY venlafaxine 150 mg capsule,extended release 24hr 50 mg PO DAILY venlafaxine 150 mg capsule,extended release 24hr PO Hold Instructions: new order lamotrigine 100 mg tablet Vraylar 3 mg capsule 3 mg PO Q24H Humalog Pen 10 units subcut .with meals Levemir FlexTouch U100 Insulin 15 - 90 units subcut ACHS aspirin [Adult Aspirin Regimen] 81 mg tablet,delayed release (DR/EC) 81 mg PO DAILY Referrals / Follow Up: Care Physician,No Primary [Primary Care Provider] - Disposition Disposition (needs filled in before D/C Order can be placed): Home, Self Care
--- NOTE | 2023-06-06 08:37 | DS.PCM_ITS ---
Providers Date of Admission: 06/03/23 Primary Care Physician: No Primary Care Phys Reason For Visit: C SECTION Diagnosis Discharge Diagnosis (1) hemorrhage: Status: Acute Code(s): O72.1 - Other immediate hemorrhage Plan: Postop day 3 status post repeat section bilateral salpingectomy. Complicated by severe preeclampsia, status post magnesium sulfate for 24 hours postop. Blood pressures well controlled. Labs are stable. Patient also complicated by hemorrhage she received Tranexamic acid, Hemabate, Cytotec, extra Pitocin. Patient was transfused 1 unit of packed red blood cells. Hemoglobin is stable. Will iron supplement on home-going. Discharge home today with a blood pressure check on Tuesday. Reviewed signs and symptoms of preeclampsia (2) Other acute postprocedural pain: Status: Acute Code(s): G89.18 - Other acute postprocedural pain (3) Delivery by section: Status: Acute (4) Anemia: Status: Acute Code(s): D64.9 - Anemia, unspecified (5) Severe pre-eclampsia: Status: Acute Code(s): O14.10 - Severe pre-eclampsia, unspecified trimester Qualifiers: Trimester: third trimester Qualified Code(s): O14.13 - Severe pre- eclampsia, third trimester Medications at Discharge Home Medications buspirone 5 mg tablet 30 mg PO BID bipolar 05/30/21 [id number] 1 mg tablet 1 tab PO DAILY Check with primary doctor 05/30/21 venlafaxine 150 mg capsule,extended release 24 hr 50 mg PO DAILY Check with primary doctor 05/30/21 Humalog Pen 10 units subcut .with meals GDM 05/18/23 Levemir FlexTouch U100 Insulin 15 - 90 units subcut ACHS gDM 05/18/23 cariprazine 3 mg capsule (Vraylar) 3 mg PO Q24H 05/18/23 lamotrigine 100 mg tablet mg 05/18/23 venlafaxine 150 mg capsule,extended release 24 hr mg PO 05/18/23 aspirin 81 mg tablet,delayed release (Adult Aspirin Regimen) 81 mg PO DAILY 06/03/23 enoxaparin 40 mg/0.4 mL subcutaneous syringe (Lovenox) 40 mg (0.4 mL) subcut Q12H 2 weeks #11.2 mL 06/03/23 oxycodone 5 mg tablet 5 mg PO Q6H PRN pain (scale score 7-10) 4 days #14 tabs 06/03/23 Hospital Course Operations section Summary of Care Provided Hospital Course: Patient admitted on 06/03/2023 for preeclampsia with severe features. She had a repeat section on that day with bilateral salpingectomy. Received magnesium sulfate for 24 hours post . Blood sugars were well controlled, blood pressures well controlled. Patient had a hemorrhage. Received 1 unit of packed red blood cells. Patient was stable for discharge on postop day 3. Physical Exam Const alert, oriented x3 and no apparent distress HEENT normocephalic Head and Scalp: atraumatic Neck full ROM Resp normal respiratory effort Cardio regular rate GI normal to inspection, nondistended, normoactive bowel sounds GI Narrative: Uterus 2 cm below umbilicus, dressing clean and dry Back/Spine normal ROM Extremity normal to inspection Extremity Narrative: Minimal pedal edema Neuro no focal motor deficits and no sensory deficits noted Psych mental status grossly normal and affect normal Weight / BMI Weight Weight: 117.934 kg Body Mass Index (BMI) 49.1 ABG / Lab / Microbiology Data 06/06/23 04:58 06/04/23 06:20 Laboratory: Laboratory Results - last 24 hr 06/05/23 12:02: POC Glucose 74 06/05/23 18:51: POC Glucose 124 H 06/05/23 22:51: POC Glucose 92 06/06/23 04:58: WBC 12.6 H, RBC 2.72 L, Hgb 8.0 L, Hct 25.1 L, MCV 92.3, MCH 29.4, MCHC 31.9 L, RDW Std Deviation 50.4 H, RDW Coeff of Laila 15.1 H, Plt Count 284, MPV 9.5, Immature Gran % (Auto) 2.900 H, Neut % (Auto) 58.5, Lymph % (Auto) 31.1, [place] % (Auto) 5.6, Eos % (Auto) 1.5, Baso % (Auto) 0.4, Absolute Neuts (auto) 7.4, Absolute Lymphs (auto) 3.92, Nucleated RBC % 0 D/C Instructions Discharge Diet: No restrictions May resume sexual activity in: 4-6 weeks Weight Bearing Status: Weight bearing as tolerated Call your doctor if your incision/area has: Continuous Slow Oozing, Increased Redness and Swelling at the incision site Call your doctor if you observe: Fever of 101 or Higher, Change in Color, Inability to urinate, Using more than 1 pad per hour, Shortness of breath, Dizziness, Swelling in the ankles, Chest pain and Calf discomfort Cleanse incision/area with: Soap & Water and Keep Dressing Clean & Dry Please Follow Up With: Donald Weber MD When: BP check with RN on Tuesday of this week. 2-week and 6-week visit Meaningful Use Info Meaningful Use Diagnoses (Choose all that apply): None applicable Discharge Plan Admission Admit Date/Time: 06/03/23 20:05 Primary Reason for Your Visit: section Attending Provider: Patrica Weber Primary Care Provider: Care Physician,No Primary Instructions Additional Instructions / Restrictions: Call for blood pressure greater than 160/110, persistent headache with visual disturbances unresolved with Tylenol and ibuprofen, right upper quadrant pain, chest pain or shortness of breath. Take blood sugars fasting a.m. and 2 hours postprandial for 1 meal daily. Discharge Orders/Prescriptions Prescriptions: New oxycodone 5 mg tablet 5 mg PO Q6H PRN (Reason: pain (scale score 7-10)) 4 Days Qty: 14 0RF enoxaparin [Lovenox] 40 mg/0.4 mL syringe 40 mg subcut Q12H 14 Days Qty: 11.2 0RF Continued buspirone 5 mg Tablet 30 mg PO BID [id number] 1 mg Tablet 1 tab PO DAILY venlafaxine 150 mg capsule,extended release 24hr 50 mg PO DAILY venlafaxine 150 mg capsule,extended release 24hr PO Hold Instructions: new order lamotrigine 100 mg tablet Vraylar 3 mg capsule 3 mg PO Q24H Humalog Pen 10 units subcut .with meals Levemir FlexTouch U100 Insulin 15 - 90 units subcut ACHS aspirin [Adult Aspirin Regimen] 81 mg tablet,delayed release (DR/EC) 81 mg PO DAILY Referrals / Follow Up: Care Physician,No Primary [Primary Care Provider] - Disposition Disposition (needs filled in before D/C Order can be placed): Home, Self Care
[2023-06-06] MEDS: Insulin Lispro 100 UNIT/ML INSULN.PEN SC (08:39)
[2023-06-06 09:00] LABS: Bedside Glucose 73 mg/dL (74-106)
[2023-06-06] MEDS: Senna/Docusate Sodium 1 Tablet PO (10:05)
[2023-06-06] MEDS: Enoxaparin 40 MG/0.4 ML Syringe SC (10:06)
--- NOTE | 2023-06-06 11:58 | CASEMGMT ---
Social Work Assessment Labor and Delivery Unit Patient Address:[address] [place] [address] [place]. [place] [id number] Phone number: [phone] Date of Referral: 06/05/23 Time of Referral:? [id number] Referred By: Patrica Weber Date of Intervention: ?06/06/23? Time of Intervention:? 1130 Reason for Referral:? Mental Health History obtained from: medical records and mother of baby (WANDA- Raegan)??and father of baby (FODilcia- Huang) Household composition: Currently residing at home are parents and their older son, Francisco J (2 years old) Patient's parent/guardian status:?Parents state that they met online. They have been together for almost four years. WANDA denies history of abuse/ domestic violence, she states that she is safe at home. Medical History: This is WANDA's second and delivery. WANDA received routine care at [place]. WANDA delivered baby boyPrasanth via .. Baby was born weighing 2910 grams and apgars wer 9 and 9. WANDA reports that she had a hemorrhage and required blood following delivery. Educational Status:?Both parents graduated from high school. WANDA states that she did attend [employer] for four years in the Hospitality program. WANDA states that she did not graduate because she switched majors and did not complete the program. MOB denies any problems with learning difficulties, both parents are able to read, write and learn without difficulty. 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 DARVIN is employed at [employer] in [place] where he welds trailer axles. Infant Supplies:?MOB states that they have been able to obtain all necessary baby items including crib, car seat, clothes, diapers and wipes. ? Childcare/Caregiver(s):? MOB will be the primary caregiver to patient because she only works one day a week. MOB states that her mother in law, paternal grandma, is available to assist with any childcare needs. Paternal grandma is watching their older son, Francisco J, while they are at the [facility]. Transportation:?? No transportation barriers at this time, both parents have reliable means of transportation. Programs/Agencies Involved: ?None?? Children Services/Legal Issues:??? MOB denies history of CSB involvement. Behavioral Health Issues: ??Mental Health History: FOB states that he has been diagnosed with anxiety, he is prescribed Wellbutrin. He denies counseling supports at this time. WANDA has been diagnosed with BiPolar, anxiety, and depression. MOB disclosed that she did experience depression following the of her first son. MOB states that at that time she had symptoms of not bonding with baby. She got connected, and is still connected with counseling supports at [place] [address] where she meets with a counselor 1x a month and psychiatry. Sw completed Penfield Scale with WANDA, her score was a 7. Sw encouraged MOB to stay connected with the mental health supports that she has in place at this time, and encouraged MOB to meet with them more frequently if her Penfield score were to increase. Educated the MOB to risk for mood and anxiety disorders, including psychosis in relation to history of bipolar disorder. WANDA states that she does have history of SI, stating I was having thoughts of thinking I would be better off . MOB denies and recent or current thoughts of hurting herself. Substance Use History: MOB denies substance use during ,or history of. ? Family History: MOB reports that her father does have a drinking problem. MOB states that he is not as bad as he used to be. MOB stated that he is a not a childcare provider to her children and she does not need to worry about him being left alone with them. ? Drug Screens: NO drug screens seen in medical record. ? Family/Social Stressors:? MOB denies stressors at this time. MOB states that she is eager to get discharged today. Support Systems: MOB states that her mom and paternal grandma are the biggest supports that their family has at this time. Depression/Shaken Baby/Safe Sleeping: Sw provided literature and educational material to MOB on signs and symptoms of baby blues, depression and anxiety. Sw encouraged MOB to have a conversation with FOB prior to discharge and explain to him how he an help her if she starts to experience signs and symptoms of baby blues, depression or anxiety. ASSESSMENT:? MOB was talkative and receptive to sw involvement and support. MOB encouraged to stay connected with her mental health supports that she is already connected to. Information regarding [facility] was provided. MOB declined referral at this time but was appreciative of information provided. ? PLAN:? MOB and baby medically ready for discharge today. No further sw needs or concerns at this time. Cynthia Lopez, [employer]TER [employer], FULFILLMENT SPECIALIST
== END 2023-06-06 12:25 | disposition home or self-care (01) | DRG 784 ==
LOC: WPOUT 20:12 → WP 20:12
PROVIDERS: Obstetrics & Gynecology; Admitting Provider Student in an Organized Health Care Education/Training Program; Visit Provider Student in an Organized Health Care Education/Training Program
DX: O14.14 Severe pre-eclampsia complicating childbirth (principal); D62 Acute posthemorrhagic anemia; O60.14X0 Preterm labor third trimester with preterm delivery third trimester, not applicable or unspecified; O72.1 Other immediate postpartum hemorrhage; F31.9 Bipolar disorder, unspecified; E66.01 Morbid (severe) obesity due to excess calories; O90.81 Anemia of the puerperium; O99.344 Other mental disorders complicating childbirth; O99.892 Other specified diseases and conditions complicating childbirth; O36.8130 Decreased fetal movements, third trimester, not applicable or unspecified; O69.81X0 Labor and delivery complicated by cord around neck, without compression, not applicable or unspecified; O34.211 Maternal care for low transverse scar from previous cesarean delivery; O24.414 Gestational diabetes mellitus in pregnancy, insulin controlled; O99.214 Obesity complicating childbirth; O24.424 Gestational diabetes mellitus in childbirth, insulin controlled; O99.824 Streptococcus B carrier state complicating childbirth; Z37.0 Single live birth; Z3A.35 35 weeks gestation of pregnancy; Z79.82 Long term (current) use of aspirin; Z79.899 Other long term (current) drug therapy; Z30.2 Encounter for sterilization; Z87.59 Personal history of other complications of pregnancy, childbirth and the puerperium
CPT/HCPCS: 59025; 59050; 80053; 81001; 82565; 82570; 82962; 83735; 84156; 84450; 84460; 84550; 85025; 85027; 85610; 85730; 86780; 86850; 86900; 86901; 86920; 88302; 99221; J7120; P9016; A4216; G0378; J0702; J2405

== ENCOUNTER → 2023-07-20 | Outpatient (CLI) | payer BC, SELFPAY ==
[2023-07-20 11:34] LABS: Glucose 2 Hour Postprandial 132 mg/dL (<140)
== END | disposition home or self-care (01) ==
LOC: WOBLAB 08:39
PROVIDERS: Visit Provider Obstetrics & Gynecology
DX: O24.419 Gestational diabetes mellitus in pregnancy, unspecified control (principal); Z3A.00 Weeks of gestation of pregnancy not specified
CPT/HCPCS: 36415; 82950

== ENCOUNTER → 2023-09-15 | Outpatient (CLI) | payer BC, SELFPAY ==
[2023-09-15 09:44] LABS: Hematocrit 40.9 % (37-47); Hemoglobin 12.3 g/dL (12.0-15.0); Mean Corp Hgb Conc 30.1 g/dL (32-36); Mean Corpuscular Hgb 25.3 pg (27.0-32.0); Mean Corpuscular Volume 84.2 fL (81-99); Mean Platelet Vol. 9.2 fl (6.2-12.0); Platelet Count 546 K/mm3 (150-450); RBC Distribution Width CV 14.7 % (11.6-14.6); RBC Distribution Width SD 45.1 fl (35.1-43.9); Red Blood Count 4.86 M/mm3 (4.2-5.4); White Blood Count 9.6 K/mm3 (4.4-11.0)
[2023-09-15 10:11] LABS: ALB/GLOB Ratio 0.9 RATIO (0.9-2.4); AST(SGOT) 14 U/L (15-37); Alanine Aminotransfer ALT/SGPT 30 U/L (13-56); Albumin, Serum 3.5 g/dL (3.2-5.0); Alkaline Phosphatase 119 U/L (45-117); Anion Gap 5 (5-15); BUN 13 mg/dL (7-18); BUN/Creat Ratio 19.5 RATIO (10-20); Calcium,Total 8.8 mg/dL (8.5-10.1); Chloride 107 mmol/L (98-107); Cholesterol 198 mg/dL (200); Creatinine, Serum 0.66 mg/dL (0.55-1.02); EST Glomerular Filtration Rate 112 mL/min (>60); Est Glom Filt Rate - Afr Amer 135 mL/min (>60); Ferritin 15 ng/mL (8-252); Globulin 4.1 g/dL (2.2-4.2); Glucose 104 mg/dL (74-106); High Density Lipoprotein 61 mg/dL; Iron 34 ug/dL (50-170); Iron Binding Capacity,Total 417 ug/dL (250-450); PERCENT IRON SATURATION 8.2 % (15.0-55.0); Potassium 4.3 mmol/L (3.5-5.1); Protein, Total 7.6 g/dL (6.4-8.2); Sodium Level 137 mmol/L (136-145); Triglycerides 107 mg/dL; Very Low Density Lipoprotein 21 mg/dL (5-40)
[2023-09-15 10:13] LABS: Vitamin B12 345 pg/mL (211-911); Vitamin D,25 Hydroxy 20.1 ng/mL
[2023-09-15 20:10] LABS: Hemoglobin A1c 5.1 % (3.8-5.6)
== END | disposition home or self-care (01) ==
LOC: LAB 08:46
PROVIDERS: PCP Nurse Practitioner Family
DX: R53.83 Other fatigue (principal)
CPT/HCPCS: 36415; 80053; 80061; 82306; 82607; 82728; 83036; 83540; 83550; 85027